=== PATIENT | female | born 1990 | race Caucasian/White ===

== ENCOUNTER 2017-03-01 10:07 | Emergency (ER) | payer BC, OTHER ==
[~2017-03-01] VITALS: Ht 162.6 cm; Wt 53.6 kg
[~2017-03-01 10:07] MED LIST: ACET500C PO; IBUP80TA FT; IBUP80TA PO; PRENTAB55 PO; TYLE325T5 PO
--- NOTE | 2017-03-01 11:17 | REP ---
Clinical: Trauma. Technique: AP, lateral, bilateral oblique views of the right ankle. Findings: No acute fracture dislocation. No significant soft tissue swelling. Joint spaces and ankle mortise are intact. Impression: No acute fracture dislocation. Signed by Edward Webb MD 03/01/2017 11:08 A
--- NOTE | 2017-03-01 11:18 | REP ---
Clinical: Trauma. Technique: AP, lateral, bilateral oblique views of the right foot. Findings: No acute fracture or dislocation. Skeletal structures and joint spaces are intact within normal limits. Focal soft tissue swelling overlying the fifth metatarsophalangeal (MTP) joint is suggested and should be correlated with physical examination. Impression: 1. No acute fracture dislocation. 2. Focal soft tissue swelling at the fifth MTP joint. Signed by Edward Webb MD 03/01/2017 11:10 A
[2017-03-01 11:32] VITALS: BP 122/72
== END 2017-03-01 11:36 | disposition home or self-care (01) ==
LOC: M ED 10:07
DX: M79.671 Pain in right foot (principal); L40.0 Psoriasis vulgaris; W10.9XXA Fall (on) (from) unspecified stairs and steps, initial encounter; X50.9XXA Other and unspecified overexertion or strenuous movements or postures, initial encounter; Y92.019 Unspecified place in single-family (private) house as the place of occurrence of the external cause; Y93.01 Activity, walking, marching and hiking; Y99.8 Other external cause status; J45.909 Unspecified asthma, uncomplicated; L40.50 Arthropathic psoriasis, unspecified; K58.9 Irritable bowel syndrome, unspecified; Z88.5 Allergy status to narcotic agent; Z88.2 Allergy status to sulfonamides; Z88.8 Allergy status to other drugs, medicaments and biological substances

== ENCOUNTER → 2017-05-05 | Outpatient (REF) | payer BC ==
[~2017-05-05] MED LIST changes: +EPIP0.3I2 IJ; +MELO15TA4 PO; +NEXP1IMP SC; +NORCOTAB PO
== END ==
LOC: M LAB REF 16:32
PROVIDERS: ATTEND Family Medicine Addiction Medicine
DX: N20.0 Calculus of kidney (principal)

== ENCOUNTER 2017-05-09 21:00 | Emergency (ER) | payer BC ==
[~2017-05-09] VITALS: Ht 162.6 cm; Wt 50.9 kg
[~2017-05-09 21:00] MED LIST changes: -EPIP0.3I2 IJ; -MELO15TA4 PO; -NEXP1IMP SC; -NORCOTAB PO
[2017-05-09] MEDS ORDERED: EPIP0.3I2 IJ (21:15)
[2017-05-09] MEDS ORDERED: MELO15TA4 PO (21:15)
[2017-05-09] MEDS ORDERED: NEXP1IMP SC (21:16)
[2017-05-09] MEDS ORDERED: NS 1,000 ML IV ONE (22:30)
[2017-05-09] MEDS ORDERED: ONDANSETRON 4MG/2ML VIAL (J2405) IV ONE (22:30)
[2017-05-09] MEDS ORDERED: KETOROLAC 30 MG/ML VIAL (J1885) IV ONE (22:30)
[2017-05-09 23:03] LABS: CONTROL LINE UCG INT CTR LINE PRESENT
[2017-05-09 23:10] LABS: BASO % 0.3 % (0.0-1.0); EOS # 0.1 10^3/uL (0.0-0.50); EOS % 1.9 % (0.0-3.0); IMMATURE GRANULOCYTE % 0.2 % (0-0); LYMPH # 1.9 10^3/uL (1.5-6.5); LYMPH % 33.2 % (24.0-44.0); MEAN CORPUSCULAR HEMOGLOBIN 29.9 pg (27.0-33.0); MEAN CORPUSCULAR VOLUME 90.7 fl (80.0-96.0); MONO # 0.5 10^3/uL (0.0-0.8); MONO % 9.2 % (0.0-5.0); NEUTROPHILS # 3.2 10^3/uL (1.8-7.7); NEUTROPHILS % 55.2 % (36.0-66.0); PLATELET COUNT, AUTOMATED 261 10^3/uL (150-450); RED CELL DISTRIBUTION WIDTH 12.3 % (11.5-14.5); WHITE BLOOD COUNT 5.8 10^3/uL (4.0-10.0)
[2017-05-09 23:21] LABS: INR 1.03
[2017-05-09 23:39] LABS: ALBUMIN 4.2 GM/DL (3.2-5.2); ALBUMIN/GLOBULIN RATIO 1.24 (1.00-1.93); ALKALINE PHOSPHATASE 65 U/L (45-117); ALT/SGPT 20 U/L (12-78); ANION GAP 3 MEQ/L (8-16); AST/SGOT 23 U/L (7-37); BILIRUBIN,DIRECT 0.2 MG/DL (0.0-0.2); BILIRUBIN,TOTAL 0.9 MG/DL (0.2-1.0); BLOOD UREA NITROGEN 16 MG/DL (7-18); CARBON DIOXIDE LEVEL 31 MEQ/L (21-32); CHLORIDE LEVEL 106 MEQ/L (98-107); CREATININE FOR GFR 0.61 MG/DL (0.55-1.02); GLOMERULAR FILTRATION RATE > 60.0 (>60); GLUCOSE, FASTING 83 MG/DL (70-105); POTASSIUM SERUM 4.1 MEQ/L (3.5-5.1); SODIUM LEVEL 140 MEQ/L (136-145); TOTAL PROTEIN 7.6 GM/DL (6.4-8.2)
--- NOTE | 2017-05-09 23:40 | REPUSA ---
CT of the abdomen and pelvis without contrast Clinical statement: Pain. Technique: Multiple axial CT images were obtained from the base of the lungs to the floor of the pelv is utilizing 5 mm axial slices without administration of contrast. Coronal and sagittal reconstructio ns were also obtained. No comparison is available. Findings: Chest: The visualized lung bases are clear. Abdomen: The kidneys are normal in size bilaterally. There is no evidence of hydronephrosis or nephro lithiasis. The liver, spleen, pancreas, gallbladder and adrenal glands are unremarkable. The aorta de monstrates normal caliber and contour. There is no abdominal lymphadenopathy or ascites. Pelvis: The bowel is unremarkable, with no obstructive or inflammatory changes. The appendix is rayray l. The urinary bladder is within normal limits. There is no pelvic lymphadenopathy or ascites. The ot her pelvic structures appear unremarkable. Bones: There are no suspicious osseous abnormalities seen. Impression: Unremarkable CT examination of the abdomen and pelvis.
[2017-05-10] MEDS ORDERED: NORCOTAB PO (00:03)
[2017-05-10] MEDS ORDERED: NORCO, ANEXSIA 5/325MG TABLET (HYDROcodone/ACETAMINOPHEN) PO ONE (00:15)
[2017-05-10 00:16] VITALS: BP 124/67
== END 2017-05-10 00:17 | disposition home or self-care (01) ==
LOC: M ED 21:00
DX: R10.9 Unspecified abdominal pain (principal); R11.0 Nausea; J45.909 Unspecified asthma, uncomplicated; K58.9 Irritable bowel syndrome, unspecified; E05.00 Thyrotoxicosis with diffuse goiter without thyrotoxic crisis or storm; Z79.3 Long term (current) use of hormonal contraceptives; Z88.5 Allergy status to narcotic agent; Z88.1 Allergy status to other antibiotic agents; Z88.2 Allergy status to sulfonamides; Z87.442 Personal history of urinary calculi
CPT/HCPCS: 74176; 80048; 80076; 81001; 83690; 84703; 85025; 85610; 96374; 96375; 99284; J1885; J2405

== ENCOUNTER → 2017-09-07 | Outpatient (CLI) | payer BC | LOC: M EKG 14:54 | DX: R07.89 Other chest pain (principal) | CPT/HCPCS: 71046 ==

== ENCOUNTER → 2018-09-04 | Outpatient (REF) | payer BC, OTHER, SELFPAY ==
[~2018-09-04] MED LIST changes: +EPIP0.3I2 IJ; +HYDR-3715 PO; +MELO15TA28 PO; +NEXP1IMP SC
[2018-09-04 20:50] LABS: INFLUENZA A AMPLIFICATION NEGATIVE (NEGATIVE); INFLUENZA B AMPLIFICATION NEGATIVE (NEGATIVE)
== END ==
LOC: M LAB REF 12:33
PROVIDERS: ATTEND Physician Assistant Medical
DX: J11.1 Influenza due to unidentified influenza virus with other respiratory manifestations (principal)

== ENCOUNTER → 2018-09-20 | Outpatient (REF) | payer OTHER ==
[~2018-09-20] MED LIST changes: -HYDR-3715 PO; +NORCOTAB PO
[2018-09-20 11:16] LABS: BASO % 0.5 % (0.0-1.0); EOS # 0.1 10^3/uL (0.0-0.50); EOS % 2.2 % (0.0-3.0); HEMATOCRIT 41.6 % (36.0-47.0); HEMOGLOBIN 13.7 g/dl (12.0-15.5); LYMPH # 1.5 10^3/uL (1.5-6.5); LYMPH % 27.2 % (24.0-44.0); MEAN CORPUSCULAR HEMOGLOBIN 29.8 pg (27.0-33.0); MEAN CORPUSCULAR HGB CONC 32.9 g/dl (32.0-36.5); MEAN CORPUSCULAR VOLUME 90.4 fl (80.0-96.0); MONO # 0.4 10^3/uL (0.0-0.8); MONO % 6.4 % (0.0-5.0); NEUTROPHILS # 3.5 10^3/uL (1.8-7.7); NEUTROPHILS % 63.3 % (36.0-66.0); PLATELET COUNT, AUTOMATED 285 10^3/uL (150-450); WHITE BLOOD COUNT 5.5 10^3/uL (4.0-10.0)
[2018-09-20 11:33] LABS: HEMOGLOBIN A1c 5.4 %
[2018-09-20 11:55] LABS: ALBUMIN 4.3 GM/DL (3.2-5.2); ALT/SGPT 18 U/L (12-78); BILIRUBIN,TOTAL 1.9 MG/DL (0.2-1.0); BLOOD UREA NITROGEN 12 MG/DL (7-18); CALCIUM LEVEL 8.9 MG/DL (8.5-10.1); CARBON DIOXIDE LEVEL 28 MEQ/L (21-32); CHLORIDE LEVEL 107 MEQ/L (98-107); CHOLESTEROL LEVEL 142 MG/DL (<200); CREATININE FOR GFR 0.72 MG/DL (0.55-1.30); GLOMERULAR FILTRATION RATE > 60.0 (>60); GLUCOSE, FASTING 90 MG/DL (70-100); HDL CHOLESTEROL 52 MG/DL (>40); LDL CHOLESTEROL 82 MG/DL (<100); NON-HDL-C 90 MG/DL; POTASSIUM SERUM 4.2 MEQ/L (3.5-5.1); SODIUM LEVEL 144 MEQ/L (136-145); THYROXINE (T4) 9.9 UG/DL (4.5-12.0); TRIGLYCERIDES LEVEL 39 MG/DL (<150)
[2018-09-20 11:56] LABS: TOTAL 25(OH) VITAMIN D 34.2 NG/ML (30.0-100.0)
[2018-09-22 00:07] LABS: Lyme Disease IgG/IgM Antibodie <0.91 ISR (0.00-0.90); Lyme Disease IgM Ab Quantitati <0.80 index (0.00-0.79)
== END ==
LOC: M LAB REF 10:41
PROVIDERS: ATTEND Family Medicine
DX: Z13.228 Encounter for screening for other metabolic disorders (principal)

== ENCOUNTER → 2018-10-17 | Outpatient (REF) | payer OTHER ==
[~2018-10-17] MED LIST changes: +HYDR-3715 PO; -NORCOTAB PO
[2018-10-17 19:27] LABS: APPEARANCE, URINE HAZY (CLEAR); BACTERIA, URINE AUTO 1+ (NEGATIVE); BILIRUBIN, URINE AUTO NEGATIVE (NEGATIVE); BLOOD, URINE BLOOD NEGATIVE (NEGATIVE); COLOR, URINE STRAW (YELLOW); GLUCOSE, URINE (UA) AUTO NEGATIVE (NEGATIVE); KETONE, URINE AUTO NEGATIVE (NEGATIVE); LEUKOCYTE ESTERASE, URINE AUTO 3+ (NEGATIVE); NITRITE, URINE AUTO NEGATIVE (NEGATIVE); PROTEIN, URINE AUTO NEGATIVE (NEGATIVE); RBC, URINE AUTO 3 /HPF (0-3); SPECIFIC GRAVITY URINE AUTO 1.006 (1.002-1.035); SQUAMOUS EPITHELIAL CELL UR AU 4 /HPF (0-6); UROBILINOGEN, URINE AUTO 0.2 mg/dL (0.0-2.0); WBC, URINE AUTO 31 /HPF (0-3)
[2018-10-17 22:16] LABS: CHLAMYDIA DNA AMPLIFICATION NEGATIVE (NEGATIVE); GC DNA AMPLIFICATION NEGATIVE (NEGATIVE)
== END ==
LOC: M LAB REF 18:37
PROVIDERS: ATTEND Nurse Practitioner Adult Health
DX: R30.0 Dysuria (principal)

== ENCOUNTER → 2019-04-02 | Outpatient (REF) | payer OTHER | LOC: M LAB REF 09:52 | PROVIDERS: ATTEND Obstetrics & Gynecology | DX: Z12.4 Encounter for screening for malignant neoplasm of cervix (principal) ==

== ENCOUNTER → 2019-05-07 | Outpatient (REF) | payer OTHER | LOC: M LAB REF 16:31 | PROVIDERS: ATTEND Surgery | DX: D22.5 Melanocytic nevi of trunk (principal) ==

== ENCOUNTER → 2020-03-13 | Outpatient (REF) | payer OTHER ==
[2020-03-13 17:32] LABS: BASO % 0.6 % (0.0-1.0); EOS # 0.1 10^3/uL (0.0-0.5); EOS % 1.7 % (0.0-3.0); HEMATOCRIT 39.9 % (36.0-47.0); LYMPH # 1.3 10^3/uL (1.5-5.0); LYMPH % 25.5 % (24.0-44.0); MEAN CORPUSCULAR HEMOGLOBIN 31.1 pg (27.0-33.0); MEAN CORPUSCULAR HGB CONC 32.6 g/dl (32.0-36.5); MEAN CORPUSCULAR VOLUME 95.5 fl (80.0-96.0); MONO # 0.4 10^3/uL (0.0-0.8); MONO % 8.2 % (0.0-5.0); NEUTROPHILS # 3.4 10^3/uL (1.5-8.5); NEUTROPHILS % 63.8 % (36.0-66.0); PLATELET COUNT, AUTOMATED 252 10^3/uL (150-450); RED BLOOD COUNT 4.18 10^6/uL (4.00-5.40); WHITE BLOOD COUNT 5.3 10^3/uL (4.0-10.0)
[2020-03-13 17:46] LABS: ALBUMIN 4.3 GM/DL (3.2-5.2); ALT/SGPT 17 U/L (12-78); BILIRUBIN,TOTAL 1.5 MG/DL (0.2-1.0); BLOOD UREA NITROGEN 9 MG/DL (7-18); CALCIUM LEVEL 9.1 MG/DL (8.5-10.1); CARBON DIOXIDE LEVEL 27 MEQ/L (21-32); CHLORIDE LEVEL 110 MEQ/L (98-107); CHOLESTEROL LEVEL 127 MG/DL (<200); CREATININE FOR GFR 0.72 MG/DL (0.55-1.30); FREE T4 1.09 NG/DL (0.76-1.46); GLOMERULAR FILTRATION RATE > 60.0 (>60); GLUCOSE, FASTING 93 MG/DL (70-100); HDL CHOLESTEROL 51 MG/DL (>40); LDL CHOLESTEROL 68 MG/DL (<100); NON-HDL-C 76 MG/DL; POTASSIUM SERUM 3.9 MEQ/L (3.5-5.1); SODIUM LEVEL 143 MEQ/L (136-145); TOTAL PROTEIN 7.6 GM/DL (6.4-8.2); TRIGLYCERIDES LEVEL 41 MG/DL (<150)
[2020-03-13 17:51] LABS: TOTAL 25(OH) VITAMIN D 46.4 NG/ML (30.0-100.0)
== END ==
LOC: M LAB REF 16:24
PROVIDERS: ATTEND Physician Assistant
DX: R00.2 Palpitations (principal); M32.9 Systemic lupus erythematosus, unspecified; E05.00 Thyrotoxicosis with diffuse goiter without thyrotoxic crisis or storm; Q21.1 Atrial septal defect

== ENCOUNTER → 2020-07-02 | Outpatient (REF) | payer BC, OTHER ==
[2020-07-02 17:31] LABS: BILIRUBIN,DIRECT 0.2 MG/DL (0.0-0.2); BILIRUBIN,TOTAL 0.7 MG/DL (0.2-1.0)
== END ==
LOC: M LAB REF 16:15
PROVIDERS: ATTEND Physician Assistant
DX: R17 Unspecified jaundice (principal)

== ENCOUNTER → 2020-08-13 | Outpatient (REF) | payer OTHER ==
[~2020-08-13] MED LIST changes: +BISO5TAB14 PO; +COLA100C5 PO; +DEPO150I IM; +GABA-1171 PO; +HYDR200T3 PO; +LEXA1TAB PO; +OXYC1TAB23 PO; +PROP10TA56 PO; +VENTAER INH
[2020-08-13 15:23] LABS: HEMATOCRIT 40.2 % (36.0-47.0); HEMOGLOBIN 13.1 g/dl (12.0-15.5); MEAN CORPUSCULAR HEMOGLOBIN 30.8 pg (27.0-33.0); MEAN CORPUSCULAR HGB CONC 32.6 g/dl (32.0-36.5); MEAN CORPUSCULAR VOLUME 94.6 fl (80.0-96.0); PLATELET COUNT, AUTOMATED 250 10^3/uL (150-450); RED BLOOD COUNT 4.25 10^6/uL (4.00-5.40); WHITE BLOOD COUNT 5.9 10^3/uL (4.0-10.0)
[2020-08-13 15:34] LABS: INR 0.95; PROTHROMBIN TIME 12.9 SECONDS (12.5-14.3)
[2020-08-13 15:35] LABS: PARTIAL THROMBOPLASTIN TIME 32.7 SECONDS (24.2-38.5)
[2020-08-16 15:09] LABS: FACTOR 8 RISTOCETIN COFACTOR 49 % (50-200); FACTOR VIII AG (VON WILLEBRAN) 66 % (50-200)
== END ==
LOC: M PLALAB 14:32
PROVIDERS: ATTEND Obstetrics & Gynecology
DX: Z32.02 Encounter for pregnancy test, result negative (principal); Z83.2 Family history of diseases of the blood and blood-forming organs and certain disorders involving the immune mechanism

== ENCOUNTER → 2020-08-14 | Outpatient (CLI) | payer OTHER ==
[~2020-08-14] MED LIST changes: -COLA100C5 PO; -OXYC1TAB23 PO
== END ==
LOC: M LABSMTC 10:13
PROVIDERS: ATTEND Anesthesiology
DX: Z01.812 Encounter for preprocedural laboratory examination (principal); Z20.822 Contact with and (suspected) exposure to COVID-19

== ENCOUNTER 2020-08-19 07:32 | Day surgery (SDC) | payer OTHER ==
[~2020-08-19] VITALS: Ht 160 cm; Wt 59.4 kg
[~2020-08-19 07:32] MED LIST changes: +LR 1,000 ML IV ONE
--- OUTSIDE RECORDS SUMMARY | 2020-08-19 07:36 | CCD | Summary of Care ---
Author Author [facility] Address Unknown Phone Unavailable Care Team Providers Care Concessions Manager Name Role Phone Jhonathan Maldonado MD PCP Reason for Visit * Reason Comments Follow-up psoriatic arthritis Encounter Details Care Team Description Date Type Department Elio Salinas MD [address] [facility] [address] [place], [place] [id number] Psoriatic arthritis (Primary Dx); [facility] current use of immunosuppressive drug; Counseling, unspecified 06/03/2020 Telemedicine [facility] Rheumatolog y at [facility] [address] [facility] [address], [address] [place] [address] Allergies Comments Active Allergy Reactions Severity Noted Date Codeine 07/10/2019 Sulfa Antibiotics 07/10/2019 documented as of this encounter (statuses as of 06/03/2020) Medications End Date Status Medication Sig Dispensed Refills Start Date Active Bisoprolol Fumarate 5 MG Take 5 mg by 0 05/15 Oral Tablet (ZEBETA) mouth daily 9 Active Zolpidem Tartrate 10 MG TAKE 1 TABLET 0 Oral Tablet (AMBIEN) BY MOUTH ONCE 9 DAILY 1 HOUR PRIOR TO SLEEPING NEEDED FOR INSOMNIA MAX DAILY DOSE OF 1 TABLET Active Montelukast Sodium 10 MG Take 10 mg by 0 06/22 Oral Tablet (SINGULAIR) mouth daily 9 Active Escitalopram Oxalate 10 TAKE 1&1 2 0 MG Oral Tablet (LEXAPRO) TABLET BY 9 MOUTH DAILY CAN INCREASE TO 2 TABS DAILY NEEDED FOR ANXIETY Active Albuterol Sulfate HFA 108 Inhale 2 0 06/0 (90 Base) MCG/ACT puffs into 9 Inhalation Aerosol the lungs Solution (PROVENTIL every 4 HFA;VENTOLIN HFA) (four) hours as needed Active EPINEPHrine 0.3 MG/0.3ML 0 Injection Solution 9 Auto-injector (EPIPEN 2-BRENDEN) Active medroxyPROGESTERone 0 Acetate 150 MG/ML 9 Intramuscular Suspension (DEPO-PROVERA) Active Naproxen Sodium (ALEVE Take by mouth 0 PO) Active Multivitamin Childrens Chew by Mouth 0 Oral Tablet Chewable Active Hydroxychloroquine Take 200 mg 0 Sulfate 200 MG Oral by mouth 0 Tablet (PLAQUENIL) daily Active Gabapentin 100 MG Oral Take 100 mg 0 02 Capsule (NEURONTIN) by mouth 0 Three times daily Active Fluticasone Propionate 50 USE 1 0 01/24 MCG/ACT Nasal Suspension SPRAY(S) IN 0 (FLONASE) EACH NOSTRIL NEEDED Active busPIRone HCl 10 MG Oral Take 10 mg by 0 04/30 Tablet (BUSPAR) mouth Two 0 Times Daily 07/02/2020 Active Secukinumab 150 MG/ML Inject 150 mg 5 mL 0 Subcutaneous Solution into the skin 0 Auto-injector every 7 (COSENTYX)Indications: (seven) days Psoriatic arthritis for 5 doses Active Secukinumab 150 MG/ML Inject 150 mg 1.96 mL 6 Subcutaneous Solution into the skin 1 Auto-injector every 28 (COSENTYX)Indications: (twenty-eight Psoriatic arthritis ) days 06/03/2020 Discontinued (Cost of medica tion) Ixekizumab 80 MG/ML Inject 80 mg 1 Syringe 5 07/11 Subcutaneous Solution into the skin 0 Auto-injector every 28 (twenty-eight ) days documented as of this encounter (statuses as of 06/03/2020) Active Problems Problem Noted Date SLE (systemic lupus erythematosus) 12/04/2019 Psoriasis 12/04/2019 documented as of this encounter (statuses as of 06/03/2020) Immunizations Name Administration Dates Next Due Influenza Quad IM Pres 07/10/2019 Free (0.5 mL dose) documented as of this encounter Social History Date Tobacco Use Types Packs/Day Years Used Former Smoker Smokeless Tobacco: Never Used Comments: quit 10 years ago, smoked 1 pa ck a week for 1.5 years Drinks/Week oz/Week Comments Alcohol Use Yes Sex Assigned at Date Recorded Not on file documented as of this encounter Last Filed Vital Signs Not on filedocumented in this encounter Progress Notes * Elio Salinas MD - 06/03/2020 12:30 PM ESTSummary: Rheumatology Telemedicine Note Rheumatology Clinic Note Patient name: Racheal Treviño : 1990 PCP: Jhonathan Maldonado MD Subjective History of Present Illness: Ms. Racheal Treviño is a 30 y.o. female with medical/surgical diagnoses as li sted below and most significant for psoriatic arthritis and asthma , coming in [facility] for management of psoriatic arthritis. Chart/medical history reviewed: "PCP for psoriatic arthritis and used to see rheumatology in [place]. She was diagnosed with skin psoriasis at 12yo and by 14 yo she started to have joint gissell n that was treated conservatively. After her first child in 2009 joint symptoms got worst and she was placed on humira from 7966-5496 this was stopped because i t increased LN of the neck. Then in 2013 she was placed on MTX 2 pills/ week fo r 1 year but stopped because of recurrent infections. She was then placed on an oral agent (she cannot recall name but believes it was HCQ po daily) which seem ed to work well but since she moved from [place] to [place] she has been off. On the initial visit c/o joint pain in back, neck, knees. She has daily morning stiffness for 3 hours and relieved with aleve extra strength TID daily and stret vernell. Activity helps but too much can make it worst. She has occasional swellin g her hands (MCP and PIP) and knees. She has skin psoriasis mainly in legs, elb ows and scalp. On initial visit lab work ordered including HALLEY, HALLEY specificity, APLA panel, ES R/CRP, RF, anticcp, hepatitis panel, TSH, C3/C4, HLAb27, quantiferon, immunoglob ulin assay, TPO, UA and UPCR and remarkable for ESR of 26, +HALLEY speckled pattern 1:160. Xrays were done of hands, knees and SI joint that were unremarkable. Gi sagar her inflammatory arthritis and active skin disease Taltz was started" "ROS has three healthy children, no history of miscarriage. She recurrently oral sores, photosensitivity, malar rash, occasional swelling in hands, hand tur n white in the cold, stress dependent hair loss, fatigue. FH positive for grave s in mother and maternal GP. Dad with positive HALLEY but no diagnosis. Remaining ROS was negative for alopecia, history of miscarriage, history of PE/D VT or CVA, inflammatory bowel disease, iritis, xerostomia, keratoconjunctivitis sicca, parotid gland swelling, renal disease, pulmonary issues, pleurisy, cardia c issues, nail pitting." Telemedicine visit 12/04/19 via video: She was unable to get the Taltz because of insurance issues and high cost. She s tates she was not offered alternative by insurance. Jun 03 2020 Telemed: This is a tele-medical visit. The patient was informed of the risks including se curity breach, technological failure, inability to perform a comprehensive physi eladia exam which could delay or prevent an accurate diagnosis, and potential compl ications from treatment decisions rendered over a telemedical platform. The brittany ent understands and consented to the use of tele-health services. The service was provided by means of an [employer]. Time spent on this evaluation today: 35 minutes She is on hydroxychloroquine 200mg daily. Never able to take ixekizumab. She is still stiff for 4 hours in the morning in her hands/ hips/ knees. Continues to h ave scalp psoriasis which is worse than before. Denies infectious symptoms. Past Medical History: Past Medical History: Diagnosis Date Asthma Past Surgical History: Past Surgical History: Procedure Laterality Date TONSILLECTOMY Past Social History: Social History Socioeconomic History Marital status: Spouse name: Not on file Number of children: Not on file Years of education: Not on file Highest education level: Not on file Occupational History Not on file Social Needs Financial resource strain: Not on file Food insecurity Worry: Not on file Inability: Not on file Transportation needs Medical: Not on file Non-medical: Not on file Tobacco Use Smoking status: Former Smoker Smokeless tobacco: Never Used Tobacco comment: quit 10 years ago, smoked 1 pack a week for 1.5 years Substance and Sexual Activity Alcohol use: Yes Drug use: Not on file Sexual activity: Not on file Lifestyle Physical activity Days per week: Not on file Minutes per session: Not on file Stress: Not on file Relationships Social connections Talks on phone: Not on file Gets together: Not on file Attends mosque service: Not on file Active member of club or organization: Not on file Attends meetings of clubs or organizations: Not on file Relationship status: Not on file Intimate partner violence Fear of current or ex partner: Not on file Emotionally abused: Not on file Physically abused: Not on file Forced sexual activity: Not on file Other Topics Concern Not on file Social History Narrative Not on file Family History: Family History Problem Relation Age of Onset Hypertension Mother Medications: Current Outpatient Medications Medication Sig Dispense Refill Albuterol Sulfate HFA 108 (90 Base) MCG/ACT Inhalation Aerosol Solution ( PROVENTIL HFA;VENTOLIN HFA) Inhale 2 puffs into the lungs every 4 (four) hours a s needed Bisoprolol Fumarate 5 MG Oral Tablet (ZEBETA) Take 5 mg by mouth daily EPINEPHrine 0.3 MG/0.3ML Injection Solution Auto-injector (EPIPEN 2-BRENDEN) Escitalopram Oxalate 10 MG Oral Tablet (LEXAPRO) TAKE 1&1 2 TABLET BY MOUTH DAILY CAN INCREASE TO 2 TABS DAILY NEEDED FOR ANXIETY Ixekizumab 80 MG/ML Subcutaneous Solution Auto-injector Inject 80 mg into the skin every 28 (twenty-eight) days (Patient not taking: Reported on 12/03/2019) 1 Syringe 5 medroxyPROGESTERone Acetate 150 MG/ML Intramuscular Suspension (DEPO-PROV ERA) Montelukast Sodium 10 MG Oral Tablet (SINGULAIR) Take 10 mg by mouth ayaka y Multivitamin Childrens Oral Tablet Chewable Chew by Mouth Naproxen Sodium (ALEVE PO) Take by mouth Zolpidem Tartrate 10 MG Oral Tablet (AMBIEN) TAKE 1 TABLET BY MOUTH ONCE DAILY 1 HOUR PRIOR TO SLEEPING NEEDED FOR INSOMNIA MAX DAILY DOSE OF 1 TABLET No current facility-administered medications for this visit. Review of Systems: Review of Systems Constitutional: Negative for activity change, appetite change, chills, fatigue a nd fever. HENT: Negative for hearing loss, mouth sores, sinus pressure, sinus pain and sor e throat. Eyes: Negative for photophobia, pain, discharge, redness, itching and visual dis turbance. Respiratory: Negative for chest tightness, shortness of breath and wheezing. Cardiovascular: Negative for chest pain and palpitations. Gastrointestinal: Negative for constipation, diarrhea, nausea and vomiting. Genitourinary: Negative for difficulty urinating, dysuria, flank pain and hematu jair. Musculoskeletal: Positive for arthralgias, back pain and joint swelling. Negativ e for myalgias, neck pain and neck stiffness. Skin: Positive for rash. Negative for color change, pallor and wound. Allergic/Immunologic: Positive for immunocompromised state. Negative for environ mental allergies. Neurological: Negative for syncope, light-headedness, numbness and headaches. Hematological: Positive for adenopathy. Psychiatric/Behavioral: Negative for sleep disturbance. The patient is not nervo us/anxious. Objective There were no vitals filed for this visit. Physical Exam Constitutional: She is oriented to person, place, and time and well-developed, w ell-nourished, and in no distress. No distress. HENT: Head: Normocephalic and atraumatic. Right Ear: External ear normal. Left Ear: External ear normal. Nose: Nose normal. Mouth/Throat: Oropharynx is clear and moist. No oropharyngeal exudate. Eyes: Pupils are equal, round, and reactive to light. Conjunctivae and EOM are n ormal. Right eye exhibits no discharge. Left eye exhibits no discharge. No scler al icterus. Neck: Normal range of motion. Neck supple. No tracheal deviation present. No thy romegaly present. Pulmonary/Chest: Effort normal. No stridor. No respiratory distress. She exhibit s no tenderness. Abdominal: She exhibits no distension. Musculoskeletal: Right shoulder: She exhibits normal range of motion. Left shoulder: She exhibits normal range of motion. Right elbow: She exhibits normal range of motion. Left elbow: She exhibits normal range of motion. Right wrist: She exhibits normal range of motion. Left wrist: She exhibits normal range of motion. Right hip: She exhibits normal range of motion. Left hip: She exhibits normal range of motion. Right knee: She exhibits normal range of motion. Left knee: She exhibits normal range of motion. Right ankle: She exhibits normal range of motion. Achilles tendon normal. Left ankle: She exhibits normal range of motion. Achilles tendon normal. Right hand: She exhibits normal range of motion. Left hand: She exhibits normal range of motion. Neurological: She is alert and oriented to person, place, and time. No cranial n erve deficit. GCS score is 15. Skin: Skin is warm and dry. No rash noted. She is not diaphoretic. No erythema. No pallor. Psychiatric: Mood, memory, affect and judgment normal. Nursing note and vitals reviewed. I have independently reviewed all imaging studies I have independently reviewed all outside documentation. I have independently reviewed all microbiology results. Assessment & Plan Ms. Racheal Treviño is a 30 y.o. female with psoriatic arthritis and asthma , coming in today for management of psoriatic arthritis. Subjectively she is on hydroxychloroquine appropriate dose but continues to have skin and joint arthritis. Objectively evaluation is challenging with software. Suspect her disease is active and requires biologic therapy. Plans a follows: #psoriatic arthritis. HALLEY positive 1:160 speckled. HLA-B27 negative. Sed rate 26 off of therapy. No erosive disease. We will continue hydroxychloroquine 200mg qdaily We will attempt to start secukinumab loading weekly X 5 followed by monthly give n uncontrolled disease. #high risk medication: Quantiferon negative Jun 2019 Hepatitis Panel negative. Eye exam referral approve pending exam. Pneumonia 13 defer to PCP Pneumonia 23 defer to PCP. Activities as tolerated. Fall precautions emphasized. Diet: low carb/low fat, more greens/vegetables, adequate hydration Exercise: Try to maintain a low impact exercise regimen as much as possible. [employer] [facility] for 30 minutes a day for at least 3 days a week. Encouraged to maintain good sleep hygiene Continue other medications as prescribed by PCP and other specialists. DVT precautions especially during long distance travel RTC: 6 months The patient was seen and examined with the attending, Dr. Anita Salinas MD Rheumatology Fellow, PGY-5 [facility] documented in this encounter Plan of Treatment Order Schedule Name Type Priority Associated Diag noses 1 Occurrences starting 06/03/2020 until 12/02/2020 CBC and Differential Lab Routine Psoriatic arthritis Expected: 09/01/2020, Expires: 1 Comprehensive Metabolic Lab Routine Psoria tic arthritis Panel Expected: 06/03/2020, Expires: 1 Inflammatory C-Reactive Lab Routine Psoria tic arthritis Protein (CRP) 1 Occurrences starting 06/03/2020 until 12/02/2020 Sedimentation rate, Lab Routine Psoriatic arthritis automated Health Maintenance Due Date Last Done Comments MMR Vaccines (1 of - 1991 Standard series) Varicella Vaccines (1 of 1991 2 - 2-dose childhood series) DTaP,Tdap,and Td Vaccines 1997 (1 - Tdap) HIV Screening 2003 Influenza Vaccine 03/26/2020 07/10/2019 Pneumococcal Vaccine: 65+ 2055 Years (1 of 1 - PPSV23) HIB Vaccines Aged Out No longer eligible based on patient's age to complete this topic Hepatitis A Vaccines Aged Out No longer eligibl e based on patient's age to complete this topic Hepatitis B Vaccines Aged Out No longer eligibl e based on patient's age to complete this topic IPV Vaccines Aged Out No longer eligible based on patient's age to complete this topic Pneumococcal Vaccine: Aged Out No longer eligib le based on patient's age to Pediatrics (0 to 5 Years) complete this topic and At-Risk Patients (6 to 64 Years) documented as of this encounter Results Not on filedocumented in this encounter Visit Diagnoses Diagnosis Psoriatic arthritis - Primary Psoriatic arthropathy [facility] current use of immunosuppress valerie drug Counseling, unspecified documented in this encounter
--- OUTSIDE RECORDS SUMMARY | 2020-08-19 07:36 | CCD | Continuity of Care Document ---
Author Author Racheal JOHNSON PAAngelC Organization Unknown Address [address] [place] [address] Phone [phone] Care Team Providers Care Software Testing Specialist Name Role Phone Lisa Orosco RK AUTM Problems Description No Information Available Social History Type Date Description Comments Sex Unknown ETOH Use Never used alcohol Tobacco Use Start: Unknown Patient has never smoked Allergies, Adverse Reactions, Alerts Active Allergies Reaction Severity Comments Date Codeine 04/28/2020 sulfa drugs 04/28/2020 Medications Active Medications SIG Qnty Indications Ordering Provide r Date Lexapro 20mg Tablets 1 by mouth every day Unknown Hydroxychloroquine Sulfate 200mg T ablets Unknown Buspirone HCL 10mg Tablets Unknown Gabapentin 100mg Capsules 1 by mouth three times a day Unknown Bisoprolol Fumarate 5mg Tablets Unknown Propranolol HCL 10mg Tablets Unknown Immunizations Description No Information Available Vital Signs Date Vital Result Comment 04/28/2020 9:45am Height 64.5 inches 5'4.50" Weight 128.50 lb BMI (Body Mass Index) 21.7 kg/m2 Results Description No Information Available Procedures Date Code Description Status 05/14/2020 03824 Manual Therapy Each 15 Minutes C ompleted 05/14/2020 43374 Therapeutic Procedure, Each 15 M inutes Completed 05/14/2020 08682 Electrical Stimulati on Manual, Each 15 Min, Constant Attendance Completed 05/14/2020 36062 Hot Or Cold Packs Completed 05/12/2020 77188 Physical Therapy Eval - Low Comp lexity Completed 04/28/2020 34835 X-Ray Ankle Complete Completed 04/28/2020 33240 X-Ray Tibia & Fibula Ap & Latera l 2 Views Completed Medical Devices Description No Information Available Encounters Type Date Location Provider Dx Diagnosis Office Visit 05/11/2020 1:45p [place] Johnson PA-C S90.01x D Contusion of right ankle, subsequent encounter S80.11xD Contusion of right lower leg , subsequent encounter S81.811D Laceration w/o foreign body, right lower leg, subs encntr Office Visit 04/28/2020 9:00a [place] Hattie Johnson PA-C S80.11x A Contusion of right lower leg, initial encounter S90.01xA Contusion of right ankle, in itial encounter S81.811A Laceration w/o foreign body, right lower leg, init encntr Assessments Date Code Description Provider 05/14/2020 S90.01xD Contusion of right ankle, subseq uent encounter Cece Scee P.T.A. 05/14/2020 S80.11xD Contusion of right lower leg, torrez bsequent encounter Cece Scee P.T.A. 05/14/2020 S81.811D Laceration without f oreign body, right lower leg, subsequent encounter Cece Scee P.T.A. 05/12/2020 S90.01xD Contusion of right ankle, subseq uent encounter Randy Johns, PT, DPT 05/12/2020 S80.11xD Contusion of right lower leg, torrez bsequent encounter Randy Johns, PT, DPT 05/12/2020 S81.811D Laceration without f oreign body, right lower leg, subsequent encounter Randy Johns, PT, DPT 05/11/2020 S90.01xD Contusion of right ankle, subseq uent encounter Hattie Johnson PA-C 05/11/2020 S80.11xD Contusion of right lower leg, torrez bsequent encounter Hattie Johnson PA-C 05/11/2020 S81.811D Laceration without f oreign body, right lower leg, subsequent encounter Hattie Johnson PA-C 04/28/2020 S81.811A Laceration without f oreign body, right lower leg, initial encounter Hattie ElamJohn MONIKA Johnson 04/28/2020 S80.11xA Contusion of right lower leg, in itial encounter Hattie ElamJohn MONIKA Johnson 04/28/2020 S90.01xA Contusion of right ankle, initia l encounter Hattie ElamJohn MONIKA Johnson 04/28/2020 S90.01xA Contusion of right ankle, initia l encounter Hattie Johnson PA-C 04/28/2020 S80.11xA Contusion of right lower leg, in itial encounter Hattie Iraida MONIKA Johnson 04/28/2020 S81.811A Laceration without f oreign body, right lower leg, initial encounter Hattie Johnson PA-C Plan of Treatment Future Appointment(s):* 06/01/2020 9:00 am - Cece Leach P.T.A. at Physical Therapy * 06/08/2020 11:30 am - Hattie Johnson PA-C at [place] 05/11/2020 - Hattie Johnson PA-C* S90.01xD Contusion of right ankle, subsequent encounter* Follow up:* in 3-4 weeks with [facility] for right ankle recheck please. (telemed visit) * S80.11xD Contusion of right lower leg, subsequent encounter * S81.811D Laceration without foreign body, right lower leg, subsequent encounter Functional Status Description No Information Available Mental Status Description No Information Available Referrals Refer to Dr Reason for Referral Status Appt Date Hattie Johnson PA-C PT BASED ON MED. [facility] TO PT DEPT. NT Create d [address] [place] [address] [phone] Hattie Johnson PA-C CRUT[place]ES and la nena shell a ir walker NO AUTH REQUIRED per card no auth required under . LS Created [facility] [place] [address] [phone]
--- OUTSIDE RECORDS SUMMARY | 2020-08-19 07:36 | CCD ---
Author Author [facility] Organization [facility] Address Unknown Phone Unavailable Care Team Providers Care Director Of Home Health Services Name Role Phone Kodi Moe Unavailable PROBLEMS Type Condition ICD9-CM Code [id number] Code Onset Dates Condition S tatus SNOMED Code Notes Problem Endometriosis N80.9 Active 485388840 ALLERGIES Allergen (clinical drug ingredient) Drug/Non Drug Allergy do cumented on EMR Reaction Allergy Type Onset Date Status Seasonal Unknown Non Drug Allergy Active novacain Unknown Non Drug Allergy Active codeine Unknown Non Drug Allergy Active Sulfacet-R Unknown Drug Allergy Active ENCOUNTERS from 1990 to 2020-07-11 Encounter Location Date Provider Diagnosis [facility] [address] [place] [id number] Jun, Kodi Moe Endometriosis N80.9 ; Negative test Z32.02 ; Encounter for surveillance of injectable contraceptive Z30.42 ; Family history of bleeding disorder Z83.2 and Family planning advice Z30.09 IMMUNIZATIONS Vaccine Route Administration Date Status Depo-Provera 150mg/1mL (Medroxy-Progestrone Acetate) IM Intr amuscular Jul 07, 2020 Administered SOCIAL HISTORY Tobacco Use: Social History Observation Description Date Details (start date - stop date) Never Smoker Sex Assigned At : Social History Observation Description Sex Assigned At Unknown Alcohol Screening: Question Answer Notes Did you have a drink containing alcohol in the past year? Ye s Points 3 Interpretation Positive How often did you have six or more drinks on one occas ion in the past year? Never (0 points) How many drinks did you have on a typica l day when you were drinking in the past year? 1 or 2 (0 points) How often did you have a drink containing alcohol in t he past year? Two to three times per week (3 points) Tobacco Use: Question Answer Notes Are you a: never smoker REASON FOR REFERRAL No Information VITAL SIGNS Weight 131.8 lbs Jun, Height 63.5 in Jun, BMI 22.98 kg/m2 Jun, Blood pressure systolic 122 mm Hg Jun, Blood pressure diastolic 70 mm Hg Jun, MEDICATIONS Medication SIG (Take, Route, Frequency, Duration) Notes Start Da te End Date Status Escitalopram Oxalate 20 MG TAKE 1 TABLET BY MOUTH ONCE DAILY Oral for 30 Active Fluticasone Propionate 50 MCG/ACT USE 1 SPRAY(S) IN EA CH NOSTRIL NEEDED Nasal for 60 Active BusPIRone HCl 10 MG TAKE 1 TABLET BY MOUTH TWICE DAILY Oral for 30 Active Hydroxychloroquine Sulfate 200 MG TAKE 1 TABLET BY MOUTH ONC E DAILY Oral for 30 Active Gabapentin 100 MG TAKE 1 CAPSULE BY MOUTH THREE TIMES DAILY Oral for 30 Active Albuterol Sulfate HFA 108 (90 Base) MCG/ACT INHALE 2 P UFFS BY MOUTH EVERY 4 HOURS NEEDED Inhalation for 17 Active MedroxyPROGESTERone Acetate 150 MG/ML INJECT 1 INTRAMU SCULARLY EVERY 12 WEEKS Intramuscular for 84 Active Bisoprolol Fumarate 5 MG TAKE 1 TABLET BY MOUTH ONCE DAILY Oral for 9 0 Active EPINEPHrine 0.3 MG/0.3ML INJECT INTRAMUSCULARLY ONCE NEED ED Injection for 1 Active Propranolol HCl 10 MG 1 tablet Orally Once a day Active PROCEDURES from 1990 to 2020-07-11 Procedure Date Ordered Result Body Site Medication: Depo-Provera 150mg/1mL IM (Medroxyprogesterone A cetate) 2020-07-07 N/A RESULTS Component Value Reference Range Test, Urine Reviewed date:07/07/2020 12:11:18 Interpretation:Negative Performing Lab:[facility], [place] [address] Test, Urine Internal QC Acceptable (Y/N) REASON FOR VISIT DISCUSS TUBAL MEDICAL (GENERAL) HISTORY Type Description Date Medical History Lupus- diagnosed November 2019 Medical History [place] Medical History asthma Medical History endometriosis Medical History heart palpitations Medical History anxiety Surgical History tonsillectomy Hospitalization History childbirth Hospitalization History anaphylactic shock 2007 Goals Section No Information Health Concerns No Information MEDICAL EQUIPMENT No Information MENTAL STATUS No Information FUNCTIONAL STATUS No Information ASSESSMENTS Encounter Date Diagnosis Assessment Notes Treatment Notes Treatm ent Clinical Notes Jun, Endometriosis (ICD-10 - N80.9) Jun, Negative test (ICD-10 - Z32.02) Jun, Encounter for surveillance o f injectable contraceptive (ICD-10 - Z30.42) Jun, Family history of bleeding disorder (ICD-10 - Z8 3.2) vWb dz workup ordered today. Jun, Family planning advice (ICD-10 - Z30.09) She was counseled on the risks, benefits, alternatives, and indications of permanent sterilization via laparoscopic bilateral salpingectomy. She understands the risk of regret and remains insistent on proceeding with permanent sterilization. She was offered long acting reversible contraceptives and has declined. She understands the risk of permanent sterilization failure (less than 1%) and her elevated risk of ectopic should she become after this procedure. The patient understands the surgical risks to include: damage to surrounding organs (necessitating additional surgical pr ocedures), hemorrhage (possibly requiring a blood transfusion), infection (necessitating antibiotics and possible additional hospitalization), and poor surgical wound healing and need for additional surgical procedures. She also understands that surgery and anesthesia carry the risk of heart attack, stroke, and/or . PLAN OF TREATMENT Treatment Notes Assessment Notes Clinical Notes Family history of bleeding disorder vWb dz workup ordered today. Family planning advice She was counseled on the risks, benefits, alternatives, and indications of permanent sterilization via laparoscopic bilateral salpingectomy. She understands the risk of regret and remains insistent on proceeding with permanent sterilization. She was offered long acting reversible contraceptives and has declined. She understands the risk of permanent sterilization failure (less than 1%) and her elevated risk of ectopic should she become after this procedure. The patient understands the surgical risks to include: damage to surrounding organs (necessitating additional surgical procedures), hemorrhage (possibly requiring a blood transfusion), infection (necessitating antibiotics and possible additional hospitalization), and poor surgical wound healing and need for additional juany gical procedures. She also understands that surgery and anesthesia carry the risk of heart attack, stroke, and/or . Treatment Notes Test Name Order Date CBC - Complete Blood Count 2020-07-11 PT & APTT 2020-07-11 FACTOR VIII AG ([place]) 2020-07-11 FACTOR 8 RISTOCETIN COFACTOR 2020-07-11 Next Appt Details Provider Name:Kodi Moe, 08:20:00 AM, [address] [place], [phone], Insurance Providers Payer Name Payer Address Payer Phone Insured Name Patient Relati onship to Insured Coverage Start Date Coverage End Date [facility] [address] [place] [address] JORDAN SHIRLEY self
--- OUTSIDE RECORDS SUMMARY | 2020-08-19 07:36 | CCD ---
Author Organization Unknown Address [address] [place] [id number] Phone [phone] Care Team Providers Care Repair Department Supervisor Name Role Phone Oir Pardo Stephanie Unavailable Unavailable Allergies Code Code System Name Reaction Severity Status Onset 2669 RxNorm Codeine Active 03/23/2016 Notes: SULFA ANTIBIOTICS - Reaction: ra sh | BEE STINGS - Reaction: unable to breathe | NOVICAINE - Reaction: rash Medications Name Status Start Date Stop Date albuterol sulfate HFA 90 mcg/actuation a erosol inhaler INHALE 2 PUFFS BY MOUTH EVERY 4 HOURS NEEDED Active Not available bisoprolol fumarate 5 mg tablet TAKE 1 TABLET BY MOUTH ONCE DAILY Active Not a vailable buspirone 10 mg tablet TAKE 1 TABLET BY MOUTH TWICE DAILY Active Not available epinephrine 0.3 mg/0.3 mL injection, aut o-injector INJECT INTRAMUSCULARLY ONCE NEEDED Active N ot available escitalopram 10 mg tablet TAKE 1 TABLET BY MOUTH ONCE DAILY Active Not a vailable escitalopram 20 mg tablet TAKE 1 TABLET BY MOUTH ONCE DAILY Active Not a vailable fluticasone propionate 50 mcg/actuation nasal spray,suspension USE 1 SPRAY(S) IN EACH NOSTRIL NEEDED Active Not available gabapentin 100 mg capsule TAKE 1 CAPSULE BY MOUTH THREE TIMES DAILY Active Not available hydroxychloroquine 200 mg tablet TAKE 1 TABLET BY MOUTH ONCE DAILY Active Not a vailable medroxyprogesterone 150 mg/mL intramuscu lar syringe INJECT 1 INTRAMUSCULARLY EVERY 12 WEEKS Active Not available montelukast 10 mg tablet TAKE 1 TABLET BY MOUTH ONCE DAILY Active Not a vailable propranolol 10 mg tablet TAKE 1 TABLET BY MOUTH TWICE DAILY Active Not available Problems Name Status Onset Date Source Psoriasis Active 03/23/2016 History Clinical Finding Active 03/23/2016 History Dental Caries on Smooth Surface Penetrating into Pulp Active 10/17/2017 History Mild Intermittent Asthma Active 09/07/2018 History Atrial Septal Defect Active 09/07/2018 History Palpitations Active 09/07/2018 History Endocrine/metabolic Screening Active 09/07/2018 Hi story Snoring Active 10/05/2018 History Finding of Body Mass Index Active 10/17/2018 Histo ry Anxiety Active 01/22/2019 History 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 Past Encounters 07/02/2020 Adult Health Examination Austyn Slaughter MD: [address] [place] [phone], Ph. Social History None recorded. Vaccine List None recorded. Plan of Care Reminders Provider Appointments None recorded. Lab None recorded. Referral None recorded. Procedures None recorded. Surgeries None recorded. Imaging None recorded. Vitals 02/11/2020 Height Weight Blood Pressure 67 in 126 lbs 4 oz 111/75 mm[Hg] 02/19/2019 Height Weight Blood Pressure 67 in 123 lbs 11.2 oz 117/74 mm[Hg] 01/22/2019 Height Weight Blood Pressure 67 in 120 lbs 118/85 mm[Hg] 10/17/2018 Height Weight Blood Pressure 67 in 124 lbs 6.08 oz 119/81 mm[Hg] 10/05/2018 Height Weight Blood Pressure 67 in 125 lbs 120/76 mm[Hg] 09/07/2018 Height Weight Blood Pressure 67 in 123 lbs 4 oz 131/84 mm[Hg]"
--- OUTSIDE RECORDS SUMMARY | 2020-08-19 07:36 | CCD ---
Author Author [facility] Organization [facility] Address Unknown Phone Unavailable Care Team Providers Care Parts Sales Counterperson Name Role Phone Kodi Moe Unavailable PROBLEMS Type Condition ICD9-CM Code [id number] Code Onset Dates Condition S tatus SNOMED Code Notes Problem Endometriosis N80.9 Active [id number] ALLERGIES Allergen (clinical drug ingredient) Drug/Non Drug Allergy do cumented on EMR Reaction Allergy Type Onset Date Status Seasonal Unknown Non Drug Allergy Active novacain Unknown Non Drug Allergy Active codeine Unknown Non Drug Allergy Active Sulfacet-R Unknown Drug Allergy Active ENCOUNTERS from 1990 to 2020-07-10 Encounter Location Date Provider Diagnosis [facility] [address] [place] [phone] Jun, Kodi Moe IMMUNIZATIONS Vaccine Route Administration Date Status Depo-Provera [...] REASON FOR REFERRAL No Information VITAL SIGNS No information MEDICATIONS Medication SIG (Take, Route, Frequency, Duration) [...] tablet Orally Once a day Active PROCEDURES No Information RESULTS No Results REASON FOR VISIT AUTHORIZATION MEDICAL (GENERAL) HISTORY Type Description Date Medical History Lupus- diagnosed November 2019 Medical History [place] Medical History asthma Medical History endometriosis Medical History heart palpitations Medical History anxiety Surgical History tonsillectomy Hospitalization History childbirth Hospitalization History anaphylactic shock 2007 Goals Section No Information Health Concerns No Information MEDICAL EQUIPMENT No Information MENTAL STATUS No Information FUNCTIONAL STATUS No Information ASSESSMENTS No Information PLAN OF TREATMENT Next Appt Details Provider Name:Kodi Moe, 08:20:00 AM, [address] [place], [phone], Insurance Providers Payer Name Payer Address Payer Phone Insured Name Patient Relati onship to Insured Coverage Start Date Coverage End Date P [address] [place] [phone] [facility]ORD[facility] self
--- OUTSIDE RECORDS SUMMARY | 2020-08-19 07:37 | CCD ---
Author Author [facility] Organization [facility] Address Unknown Phone Unavailable Care Team Providers Care Assistant Food Service Director Name Role Phone Stephanie Slaughter MD Unavailable Unavailable Stephanie Slaughter MD Unavailable Unavailable Stephanie Slaughter MD Unavailable Unavailable Stephanie Slaughter MD Unavailable Unavailable Stephanie Slaughter MD Unavailable Unavailable Stephanie Slaughter MD Unavailable Unavailable Stephanie Slaughter MD Unavailable Unavailable Stephanie Slaughter MD Unavailable Unavailable Stephanie Slaughter MD Unavailable Unavailable Stephanie Slaughter MD Unavailable Unavailable Stephanie Slaughter MD Unavailable Unavailable Stephanei Slaughter MD Unavailable Unavailable Stephanie Slaughter MD Unavailable Unavailable Stephanie Slaughter MD Unavailable Unavailable Stephanie Slaughter MD Unavailable Unavailable Stephanie Slaughter MD Unavailable Unavailable Stephanie Slaughter MD Unavailable Unavailable Stephanie Slaughter MD Unavailable Unavailable Stephanie Slaughter MD Unavailable Unavailable Stephanie Slaughter MD Unavailable Unavailable Stephanie Slaughter MD Unavailable Unavailable Stephanie Slaughter MD Unavailable Unavailable Stephanie Slaughter MD Unavailable Unavailable Stephanie Slaughter MD Unavailable Unavailable Stephanie Slaughter MD Unavailable Unavailable Stephanie Slaughter MD Unavailable Unavailable Stephanie Slaughter MD Unavailable Unavailable Stephanie Slaughter MD Unavailable Unavailable Stephanie Slaughter MD Unavailable Unavailable Stephanie Slaughter MD Unavailable Unavailable Stephanie Slaughter MD Unavailable Unavailable Stephanie Slaughter MD Unavailable Unavailable Stephanie Slaughter MD Unavailable Unavailable Stephanie Slaughter MD Unavailable Unavailable Stephanie Slaughter MD Unavailable Unavailable Stephanie Slaughter MD Unavailable Unavailable Stephanie Slaughter MD Unavailable Unavailable Stephanie Slaughter MD Unavailable Unavailable Stephanie Slaughter MD Unavailable Unavailable Stephanie Slaughter MD Unavailable Unavailable Stephanie Slaughter MD Unavailable Unavailable Stephanie Slaughter MD Unavailable Unavailable Stephanie Slaughter MD Unavailable Unavailable Stephanie Slaughter MD Unavailable Unavailable Stephanie Slaughter MD Unavailable Unavailable Stephanie Slaughter MD Unavailable Unavailable Stephanie Slaughter MD Unavailable Unavailable Stephanie Slaughter MD Unavailable Unavailable Stephanie Slaughter MD Unavailable Unavailable Stephanie Slaughter MD Unavailable Unavailable Stephanie Slaughter MD Unavailable Unavailable Stephanie Slaughter MD Unavailable Unavailable Stephanie Slaughter MD Unavailable Unavailable Stephanie Slaughter MD Unavailable Unavailable Stephanie Slaughter MD Unavailable Unavailable Stephanie Slaughter MD Unavailable Unavailable Stephanie Slaughter MD Unavailable Unavailable Stephanie Slaughter MD Unavailable Unavailable Stephanie Slaughter MD Unavailable Unavailable Stephanie Slaughter MD Unavailable Unavailable Stephanie Slaughter MD Unavailable Unavailable Stephanie Slaughter MD Unavailable Unavailable Stephanie Slaughter MD Unavailable Unavailable Stephanie Slaughter MD Unavailable Unavailable Stephanie Slaughter MD Unavailable Unavailable Stephanie Slaughter MD Unavailable Unavailable Stephanie Slaughter MD Unavailable Unavailable Stephanie Slaughter MD Unavailable Unavailable Stephanie Slaughter MD Unavailable Unavailable Stephanie Slaughter MD Unavailable Unavailable Stephanie Slaughter MD Unavailable Unavailable Stephanie Slaughter MD Unavailable Unavailable Stephanie Slaughter MD Unavailable Unavailable Stephanie Slaughter MD Unavailable Unavailable Stephanie Slaughter MD Unavailable Unavailable Stephanie Slaughter MD Unavailable Unavailable Stephanie Slaughter MD Unavailable Unavailable Stephanie Slaughter MD Unavailable Unavailable Stephanie Slaughter MD Unavailable Unavailable Stephanie Slaughter MD Unavailable Unavailable Stephanie Slaughter MD Unavailable Unavailable Stephanie Slaughter MD Unavailable Unavailable Stephanie Slaughter MD Unavailable Unavailable Stephanie Slaughter MD Unavailable Unavailable Stephanie Slaughter MD Unavailable Unavailable Stephanie Slaughter MD Unavailable Unavailable Stephanie Slaughter MD Unavailable Unavailable Stephanie Slaughter MD Unavailable Unavailable Stephanie Slaughter MD Unavailable Unavailable NOEMY MURRAY MD Unavailable Unavailable NOEMY MURRAY MD Unavailable Unavailable NOEMY MURRAY MD Unavailable Unavailable NOEMY MURRAY MD Unavailable Unavailable NOEMY MURRAY MD Unavailable Unavailable NOEMY MURRAY MD Unavailable Unavailable NOEMY MURRAY MD Unavailable Unavailable NOEMY MURRAY MD Unavailable Unavailable NOEMY MURRAY MD Unavailable Unavailable NOEMY MURRAY MD Unavailable Unavailable NOEMY MURRAY MD Unavailable Unavailable NOEMY MURRAY MD Unavailable Unavailable NOEMY MURRAY MD Unavailable Unavailable NOEMY MURRAY MD Unavailable Unavailable NOEMY MURRAY MD Unavailable Unavailable NOEMY MURRAY MD Unavailable Unavailable NOEMY MURRAY MD Unavailable Unavailable NOEMY MURRAY MD Unavailable Unavailable NOEMY MURRAY MD Unavailable Unavailable NOEMY MURRAY MD Unavailable Unavailable NOEMY MURRAY MD Unavailable Unavailable NOEMY MURRAY MD Unavailable Unavailable NOEMY MURRAY MD Unavailable Unavailable NOEMY MURRAY MD Unavailable Unavailable NOEMY MURRAY MD Unavailable Unavailable NOEMY MURRAY MD Unavailable Unavailable NOEMY MURRAY MD Unavailable Unavailable NOEMY MURRAY MD Unavailable Unavailable NOEMY MURRAY MD Unavailable Unavailable NOEMY MURRAY MD Unavailable Unavailable NOEMY MURRAY MD Unavailable Unavailable NOMEY MURRAY MD Unavailable Unavailable NOEMY MURRAY MD Unavailable Unavailable NOEMY MURRAY MD Unavailable Unavailable NOEMY MURRAY MD Unavailable Unavailable NOEMY MURRAY MD Unavailable Unavailable NOEMY MURRAY MD Unavailable Unavailable NOEMY MURRAY MD Unavailable Unavailable NOEMY MURRAY MD Unavailable Unavailable NOEMY MURRAY MD Unavailable Unavailable NOEMY MURRAY MD Unavailable Unavailable NOEMY MURRAY MD Unavailable Unavailable NOEMY MURRAY MD Unavailable Unavailable NOEMY MURRAY MD Unavailable Unavailable NOEMY MURRAY MD Unavailable Unavailable NOEMY MURRAY MD Unavailable Unavailable NOEMY MURRAY MD Unavailable Unavailable NOEMY MURRAY MD Unavailable Unavailable NOEMY MURRAY MD Unavailable Unavailable NOEMY MURRAY MD Unavailable Unavailable NOEMY MURRAY MD Unavailable Unavailable NOEMY MURRAY MD Unavailable Unavailable NOEMY MURRAY MD Unavailable Unavailable NOEMY MURRAY MD Unavailable Unavailable NOEMY MURRAY MD Unavailable Unavailable NOEMY MURRAY MD Unavailable Unavailable NOEMY MURRAY MD Unavailable Unavailable NOEMY MURRAY MD Unavailable Unavailable NOEMY MURRAY MD Unavailable Unavailable NOEMY MURRAY MD Unavailable Unavailable NOEMY MURRAY MD Unavailable Unavailable NOEMY MURRAY MD Unavailable Unavailable NOEMY MURRAY MD Unavailable Unavailable NOEMY MURRAY MD Unavailable Unavailable NOEMY MURRAY MD Unavailable Unavailable NOEMY MURRAY MD Unavailable Unavailable NOEMY MURRAY MD Unavailable Unavailable NOEMY MURRAY MD Unavailable Unavailable NOEMY MURRAY MD Unavailable Unavailable NOEMY MURRAY MD Unavailable Unavailable NEOMY MURRAY MD Unavailable Unavailable NOEMY MURRAY MD Unavailable Unavailable NOEMY MURRAY MD Unavailable Unavailable NOEMY MURRAY MD Unavailable Unavailable NOEMY MURRAY MD Unavailable Unavailable NOEMY MURRAY MD Unavailable Unavailable NOEMY MURRAY MD Unavailable Unavailable NOEMY MURRAY MD Unavailable Unavailable NOEMY MURRAY MD Unavailable Unavailable NOEMY MURRAY MD Unavailable Unavailable NOEMY MURRAY MD Unavailable Unavailable NOEMY MURRAY MD Unavailable Unavailable NOEMY MURRAY MD Unavailable Unavailable NOEMY MURRAY MD Unavailable Unavailable Caitlin QUEVEDO Unavailable Unavailable Nusrat NAM MD Unavailable Unavailable Nusrat NAM MD Unavailable Unavailable Nusrat NAM MD Unavailable Unavailable Nusrat NAM MD Unavailable Unavailable Nusrat NAM MD Unavailable Unavailable Nusrat ANM MD Unavailable Unavailable Nusrat NAM MD Unavailable Unavailable Nusrat NAM MD Unavailable Unavailable Nusrat NAM MD Unavailable Unavailable Nusrat NAM MD Unavailable Unavailable Nusrat NAM MD Unavailable Unavailable Nusrat NAM MD Unavailable Unavailable Nusrat NAM MD Unavailable Unavailable Nusrat NAM MD Unavailable Unavailable Nusrat NAM MD Unavailable Unavailable Nusrat NAM MD Unavailable Unavailable Nusrat NAM MD Unavailable Unavailable Nusrat NAM MD Unavailable Unavailable Nusrat NAM MD Unavailable Unavailable Nusrat NAM MD Unavailable Unavailable Nusrat NAM MD Unavailable Unavailable Nusrat NAM MD Unavailable Unavailable Nusrat NAM MD Unavailable Unavailable Nusart ANM MD Unavailable Unavailable Nusrat NAM MD Unavailable Unavailable Nusrat NAM MD Unavailable Unavailable Nusrat NAM MD Unavailable Unavailable Nusrat NAM MD Unavailable Unavailable Nusrat NAM MD Unavailable Unavailable ISABELANusrat PEGUERO MD Unavailable Unavailable Nusrat NAM MD Unavailable Unavailable Nusrat NAM MD Unavailable Unavailable Nusrat NAM MD Unavailable Unavailable Nusrat NAM MD Unavailable Unavailable Nusrat NAM MD Unavailable Unavailable Nusrat NAM MD Unavailable Unavailable Nusrat NAM MD Unavailable Unavailable Nusrat NAM MD Unavailable Unavailable Nusrat NAM MD Unavailable Unavailable Nusrat NAM MD Unavailable Unavailable Nusrat NAM MD Unavailable Unavailable Nusrat NAM MD Unavailable Unavailable Nusrat NAM MD Unavailable Unavailable Nusrat NAM MD Unavailable Unavailable Nusrat NAM MD Unavailable Unavailable Nusrat NAM MD Unavailable Unavailable Nusrat NAM MD Unavailable Unavailable Nusrat NAM MD Unavailable Unavailable Nusrat NAM MD Unavailable Unavailable Nusrat NAM MD Unavailable Unavailable Nusrat NAM MD Unavailable Unavailable Nusrat NAM MD Unavailable Unavailable Nusrat NAM MD Unavailable Unavailable Nusrat NAM MD Unavailable Unavailable Nusrat NAM MD Unavailable Unavailable Nusrat NAM MD Unavailable Unavailable Nusrat NAM MD Unavailable Unavailable Nusrat NAM MD Unavailable Unavailable Nusrat NAM MD Unavailable Unavailable Nusrat NAM MD Unavailable Unavailable Nusrat NAM MD Unavailable Unavailable Nusrat NAM MD Unavailable Unavailable Nusrat NAM MD Unavailable Unavailable Nusrat NAM MD Unavailable Unavailable Nusrat NAM MD Unavailable Unavailable Nusrat NAM MD Unavailable Unavailable Nusrat NAM MD Unavailable Unavailable Nusrat NAM MD Unavailable Unavailable Nusrat NAM MD Unavailable Unavailable Nusrat NAM MD Unavailable Unavailable Nusrat NAM MD Unavailable Unavailable ISABELA, Nusrat JETER MD Unavailable Unavailable ISABELA, Nusrat JETER MD Unavailable Unavailable ISABELA, Nusrat JETER MD Unavailable Unavailable ISABELA, Nusrat JETER MD Unavailable Unavailable ISABELA, Nusrat JETER MD Unavailable Unavailable ISABELA, Nusrat JETER MD Unavailable Unavailable ISABELA, Nusrat JETER MD Unavailable Unavailable ISABELA, Nusrat JETER MD Unavailable Unavailable ISABELA, Nusrat JETER MD Unavailable Unavailable ISABELA, Nusrat JETER MD Unavailable Unavailable ISABELA, Nusrat JETER MD Unavailable Unavailable ISABELA, Nusrat JETER MD Unavailable Unavailable SEO, GABRIEL ORI RPA-C Unavailable Unavailable SEO, GABRIEL ORI RPA-C Unavailable Unavailable SEO, GABRIEL ORI RPA-C Unavailable Unavailable SEO, GABRIEL ORI RPA-C Unavailable Unavailable SEO, GABRIEL ORI RPA-C Unavailable Unavailable SEO, GABRIEL ORI RPA-C Unavailable Unavailable SEO, GABRIEL ORI RPA-C Unavailable Unavailable SEO, GABRIEL ORI RPA-C Unavailable Unavailable SEO, GABRIEL ORI RPA-C Unavailable Unavailable SEO, GABRIEL ORI RPA-C Unavailable Unavailable SEO, GABRIEL ORI RPA-C Unavailable Unavailable SEO, GABRIEL ORI RPA-C Unavailable Unavailable SEO, GABRIEL ORI RPA-C Unavailable Unavailable SEO, GABRIEL ORI RPA-C Unavailable Unavailable SEO, GABRIEL ORI RPA-C Unavailable Unavailable SEO, GABRIEL ORI RPA-C Unavailable Unavailable SEO, GABRIEL ORI RPA-C Unavailable Unavailable SEO, GABRIEL ORI RPA-C Unavailable Unavailable SEO, GABRIEL ORI RPA-C Unavailable Unavailable SEO, GABRIEL ORI RPA-C Unavailable Unavailable SEO, GABRIEL ORI RPA-C Unavailable Unavailable SEO, GABRIEL ORI RPA-C Unavailable Unavailable SEO, GABRIEL ORI RPA-C Unavailable Unavailable SEO, GABRIEL ORI RPA-C Unavailable Unavailable SEO, GABRIEL ORI RPA-C Unavailable Unavailable SEO, GABRIEL ORI RPA-C Unavailable Unavailable SEO, GABRIEL ORI RPA-C Unavailable Unavailable SEO, GABRIEL ORI RPA-C Unavailable Unavailable SEO, GABRIEL ORI RPA-C Unavailable Unavailable SEO, GABRIEL ORI RPA-C Unavailable Unavailable SEO, GABRIEL ORI RPA-C Unavailable Unavailable SEO, GABRIEL ORI RPA-C Unavailable Unavailable SEO, GABRIEL ORI RPA-C Unavailable Unavailable SEO, GABRIEL ORI RPA-C Unavailable Unavailable SEO, GABRIEL ORI RPA-C Unavailable Unavailable SEO, GABRIEL ORI RPA-C Unavailable Unavailable SEO, GABRIEL ORI RPA-C Unavailable Unavailable SEO, GABRIEL ORI RPA-C Unavailable Unavailable SEO, GABRIEL ORI RPA-C Unavailable Unavailable LETTIERE, A LELA PA Unavailable Unavailable LETTIERE, A LELA PA Unavailable Unavailable LETTIERE, A LELA PA Unavailable Unavailable LETTIERE, A LELA PA Unavailable Unavailable LETTIERE, A LELA PA Unavailable Unavailable LETTIERE, A LELA PA Unavailable Unavailable LETTIERE, A LELA PA Unavailable Unavailable LETTIERE, A LELA PA Unavailable Unavailable LETTIERE, A LELA PA Unavailable Unavailable LETTIERE, A LELA PA Unavailable Unavailable LETTIERE, A LELA PA Unavailable Unavailable LETTIERE, A LELA PA Unavailable Unavailable LETTIERE, A LELA PA Unavailable Unavailable LETTIERE, A LELA PA Unavailable Unavailable LETTIERE, A LELA PA Unavailable Unavailable LETTIERE, A LELA PA Unavailable Unavailable LETTIERE, A LELA PA Unavailable Unavailable LETTIERE, A LELA PA Unavailable Unavailable LETTIERE, A LELA PA Unavailable Unavailable LETTIERE, A LELA PA Unavailable Unavailable LETTIERE, A LELA PA Unavailable Unavailable LETTIERE, A LELA PA Unavailable Unavailable LETTIERE, A LELA PA Unavailable Unavailable LETTIERE, A LELA PA Unavailable Unavailable LETTIERE, A LELA PA Unavailable Unavailable LETTIERE, A LELA PA Unavailable Unavailable LETTIERE, A LELA PA Unavailable Unavailable LETTIERE, A LELA PA Unavailable Unavailable LETTIERE, A LELA PA Unavailable Unavailable Jac Gabr, Aram Novoa MD Unavailable Unavailable Jac Gabr, Aram Novoa MD Unavailable Unavailable Jac Gabr, Aram Novoa MD Unavailable Unavailable Jac Gabr, Aram Novoa MD Unavailable Unavailable Jac Gabr, Aram Novoa MD Unavailable Unavailable Jac Gabr, Aram Novoa MD Unavailable Unavailable Jac Gabr, Aram Novoa MD Unavailable Unavailable Jac Gabr, Aram Novoa MD Unavailable Unavailable Jac Gabr, Aram Novoa MD Unavailable Unavailable Jac Gabr, Aram Novoa MD Unavailable Unavailable Jac Gabr, Aram Novoa MD Unavailable Unavailable Jac Gabr, Aram Novoa MD Unavailable Unavailable Jac Gabr, Aram Novoa MD Unavailable Unavailable Fish, Shari Kuhn MPAS, PA-C Unavailable Unavailabl e Fish, [facility], PA-C Unavailable Unavailabl e Fish, [facility], PA-C Unavailable Unavailabl e Fish, [facility], PA-C Unavailable Unavailabl e Fish, [facility], PA-C Unavailable Unavailabl e Fish, [facility], PA-C Unavailable Unavailabl e Fish, [facility], PA-C Unavailable Unavailabl e Fish, [facility], PA-C Unavailable Unavailabl e Fish, [facility], PA-C Unavailable Unavailabl e Fish, [facility], PA-C Unavailable Unavailabl e Fish, [facility], PA-C Unavailable Unavailabl e Fish, [facility], PA-C Unavailable Unavailabl e Fish, [facility], PA-C Unavailable Unavailabl e Fish, [facility], PA-C Unavailable Unavailabl e Fish, [facility], PA-C Unavailable Unavailabl e Fish, [facility], PA-C Unavailable Unavailabl e Fish, [facility], PA-C Unavailable Unavailabl e Fish, [facility], PA-C Unavailable Unavailabl e Fish, [facility], PA-C Unavailable Unavailabl e Fish, [facility], PA-C Unavailable Unavailabl e Fish, [facility], PA-C Unavailable Unavailabl e Fish, [facility], PA-C Unavailable Unavailabl e Fish, [facility], PA-C Unavailable Unavailabl e Fish, [facility], PA-C Unavailable Unavailabl e Fish, [facility], PA-C Unavailable Unavailabl e Fish, [facility], PA-C Unavailable Unavailabl e Fish, [facility], PA-C Unavailable Unavailabl e Fish, [facility], PA-C Unavailable Unavailabl e Fish, [facility], PA-C Unavailable Unavailabl e Fish, [facility], PA-C Unavailable Unavailabl e Fish, [facility], PA-C Unavailable Unavailabl e Fish, [facility], PA-C Unavailable Unavailabl e Fish, [facility], PA-C Unavailable Unavailabl e Fish, Shari Suleatha LADDS, PA-C Unavailable Unavailabl e [place], [place] Unavailable Nusrat NAM MD Unavailable Unavailable Nusrat NAM MD Unavailable Unavailable Nusrat NAM MD Unavailable Unavailable Nusrat NAM MD Unavailable Unavailable Nusrat NAM MD Unavailable Unavailable Nusrat NAM MD Unavailable Unavailable Nusrat NAM MD Unavailable Unavailable Nusrat NAM MD Unavailable Unavailable Nusrat NAM MD Unavailable Unavailable Nusrat NAM MD Unavailable Unavailable Nusrat NAM MD Unavailable Unavailable Nusrat NAM MD Unavailable Unavailable Nusrat NAM MD Unavailable Unavailable Nusrat NAM MD Unavailable Unavailable Nusrat NAM MD Unavailable Unavailable Nusrat NAM MD Unavailable Unavailable Nusrat NAM MD Unavailable Unavailable Nusrat NAM MD Unavailable Unavailable Nusrat NAM MD Unavailable Unavailable Nusrat NAM MD Unavailable Unavailable Nusrat NAM MD Unavailable Unavailable Nusrat NAM MD Unavailable Unavailable Nusrat NAM MD Unavailable Unavailable Nusrat NAM MD Unavailable Unavailable Nusrat NAM MD Unavailable Unavailable Nusrat NAM MD Unavailable Unavailable Nusrat NAM MD Unavailable Unavailable Nusrat NAM MD Unavailable Unavailable Nusrat NAM MD Unavailable Unavailable Nusrat NAM MD Unavailable Unavailable Nusrat NAM MD Unavailable Unavailable Nusrat NAM MD Unavailable Unavailable Nusrat NAM MD Unavailable Unavailable Nusrat NAM MD Unavailable Unavailable Nusrat NAM MD Unavailable Unavailable Nusrat NAM MD Unavailable Unavailable Nusrat NAM MD Unavailable Unavailable Nusrat NAM MD Unavailable Unavailable Nusrat NAM MD Unavailable Unavailable Nusrat NAM MD Unavailable Unavailable Nusrat NAM MD Unavailable Unavailable Nusrat NAM MD Unavailable Unavailable Nusrat NAM MD Unavailable Unavailable Nusrat NAM MD Unavailable Unavailable Nusrat NAM MD Unavailable Unavailable Nusrat NAM MD Unavailable Unavailable Nusrat NAM MD Unavailable Unavailable Nusrat NAM MD Unavailable Unavailable Nusrat NAM MD Unavailable Unavailable Nusrat NAM MD Unavailable Unavailable Nusrat NAM MD Unavailable Unavailable Nusrat NAM MD Unavailable Unavailable Nusrat NAM MD Unavailable Unavailable Nusrat NAM MD Unavailable Unavailable Nusrat NAM MD Unavailable Unavailable Nusrat NAM MD Unavailable Unavailable Nusrat NAM MD Unavailable Unavailable Nusrat NAM MD Unavailable Unavailable Nusrat NAM MD Unavailable Unavailable Nusrat NAM MD Unavailable Unavailable Nusrat NAM MD Unavailable Unavailable Nusrat NAM MD Unavailable Unavailable Nusrat NAM MD Unavailable Unavailable Nusrat NAM MD Unavailable Unavailable Nusrat NAM MD Unavailable Unavailable Nusrat NAM MD Unavailable Unavailable Nusrat NAM MD Unavailable Unavailable Nusrat NAM MD Unavailable Unavailable Nusrat NAM MD Unavailable Unavailable Nusrat NAM MD Unavailable Unavailable Nusrat NAM MD Unavailable Unavailable Nusrat NAM MD Unavailable Unavailable Nusrat NAM MD Unavailable Unavailable Nusrat NAM MD Unavailable Unavailable Nusrat NAM MD Unavailable Unavailable Nusrat NAM MD Unavailable Unavailable Nusrat NAM MD Unavailable Unavailable Nusrat NAM MD Unavailable Unavailable Nusrat NAM MD Unavailable Unavailable Nusrat NAM MD Unavailable Unavailable Nusrat NAM MD Unavailable Unavailable Nusrat NAM MD Unavailable Unavailable Nusrat NAM MD Unavailable Unavailable Lisa Orosco CSR RETAIL CSR RETAIL Unavailable Unavailable Ileana Dasilva Unavailable [facility], RFROST SEO PA ORI Unavailable Unavailable Feola, T Leticia PA Unavailable Unavailable Feola, T Leticia PA Unavailable Unavailable Feola, T Leticia PA Unavailable Unavailable Feola, T Leticia PA Unavailable Unavailable Feola, T Leticia PA Unavailable Unavailable Feola, T Leticia PA Unavailable Unavailable Feola, T Leticia PA Unavailable Unavailable Feola, T Leticia PA Unavailable Unavailable Feola, T Leticia PA Unavailable Unavailable Feola, T Leticia PA Unavailable Unavailable Feola, T Leticia PA Unavailable Unavailable Feola, T Leticia PA Unavailable Unavailable Feola, T Leticia PA Unavailable Unavailable Feola, T Leticia PA Unavailable Unavailable Feola, T Leticia PA Unavailable Unavailable Feola, T Leticia PA Unavailable Unavailable Feola, T Leticia PA Unavailable Unavailable Feola, T Leticia PA Unavailable Unavailable Feola, T Leticia PA Unavailable Unavailable Feola, T Leticia PA Unavailable Unavailable Feola, T Leticia PA Unavailable Unavailable Feola, T Leticia PA Unavailable Unavailable Feola, T Leticia PA Unavailable Unavailable Feola, T Leticia PA Unavailable Unavailable Feola, T Leticia PA Unavailable Unavailable Feola, T Leticia PA Unavailable Unavailable Feola, T Leticia PA Unavailable Unavailable Feola, T Leticia PA Unavailable Unavailable Feola, T Leticia PA Unavailable Unavailable Feola, T Leticia PA Unavailable Unavailable Feola, T Leticia PA Unavailable Unavailable Feola, T Leticia PA Unavailable Unavailable Feola, T Leticia PA Unavailable Unavailable Feola, T Leticia PA Unavailable Unavailable Feola, T Leticia PA Unavailable Unavailable Feola, T Leticia PA Unavailable Unavailable Feola, T Leticia PA Unavailable Unavailable Re-disclosure Warning The records that you are about to access may contain information from federally-assisted alcohol or drug abuse programs. If such information is present, then the following federally mandated warning applies: This information has been disclosed to you from records protected by federal confidentiality rules (42 CFR part 2). The federal rules prohibit you from making any further disclosure of this information unless further disclosure is expressly permitted by the written consent of the person to whom it pertains or as otherwise permitted by 42 CFR part 2. A general authorization for the release of medical or other information is NOT sufficient for this purpose. The Federal rules restrict any use of the information to criminally investigate or prosecute any alcohol or drug abuse patient.The records that you are about to access may contain highly sensitive health information, the redisclosure of which is protected by Article 27-F of the [facility] Public Health law. If you continue you may have access to information: Regarding HIV / AIDS; Provided by facilities licensed or operated by the [facility] Office of Mental Health; or Provided by the [facility] Office for People With Developmental Disabilities. If such information is present, then the following [facility] mandated warning applies: This information has been disclosed to you from confidential records which are protected by state law. State law prohibits you from making any further disclosure of this information without the specific written consent of the person to whom it pertains, or as otherwise permitted by law. Any unauthorized further disclosure in violation of state law may result in a fine or retirement sentence or both. A general authorization for the release of medical or other information is NOT sufficient authorization for further disc losure. Allergies and Adverse Reactions Type Description Substance Reaction Status Data Source(s ) Drug Class SULFA ANTIBIOTICS SULFA ANTIBIOTICS [facility] DRUG INGREDI CODEINE Codeine [facility] Family History Family Member Name Family Member Gender Family Member Status Date o f Status Description Data Source(s) Unknown Male Problem [facility] ([facility]) Unknown Unknown Problem MEDENT ([facility]) Unknown Male Problem MEDENT ([facility]) Encounters Encounter Providers Location Date Indications Data Source(s ) Outpatient Attender: LEATHA QUEVEDO 12/02/2020 12:00:00 AM [facility] Outpatient Attender: Leticia WOODY 021 12:15:24 PM EST - 07/29/2020 12:36:07 PM EST [facility] ([facility] ) Unknown [address] [facility] [place] [address] 07/10/2020 12:00:00 AM EST eCW1 ([facility]) Outpatient [address] [facility] [place] [address] 07/07/2020 12:00:00 AM EST eCW1 ([facility]) Austyn Slaughter MD: [address] [place] [phone], Ph. Attender: Austyn Slaughter MD [facility] Medical 07/02/2020 12:00:00 AM EST [facility] ([facility]) Outpatient Attender: LEATHA QUEVEDO [id number] 06/03/2020 12:00 :00 AM EST Arthropathic psoriasis, unspecified [facility] Arthropathic psoriasis, unspecified Outpatient Attender: Hattie STACK PA-C Physical Therapy 05/11/2020 12:45:00 PM EST MEDENT ([facility]) OFFICE OUTPATIENT NEW 30 MINUTES Attender: Hattie STACK PA-C Physical Therapy 04/28/2020 08:00:00 AM EST MEDENT ([facility]) Outpatient Attender: ALIYAH EARL [facility] ALIYAH TORREZ [facility] 07/2019 11:10:[address] [facility] Outpatient Attender: ORI SEO RPA-C [facility] 03/27/2020 10:48:[address] [facility] Outpatient Attender: ALIYAH TORREZ [facility] 07/2019 10:22:[address] [facility] Outpatient Attender: ORI SEO RPA-C [facility] 03/27/2020 10:22:[address] [facility] Outpatient Attender: ORI SEO RPA-C [facility] 02/19/2020 02:02:[address] [facility] 02:02:[address] [facility] Outpatient Attender: ORI SEO RPA-C [facility] 02/11/2020 04:28:[address] [facility] Outpatient Attender: ORI SEO RPA-C 02/11/2020 03:32:[address] [facility] Outpatient Attender: ORI SEO RPA-C 02/11/2020 03:31:[address] [facility] Outpatient Attender: RK BECKMAN 02/11/2020 03:22:[address] [facility] Outpatient Attender: RK BECKMAN 01/07/2020 10:47:[address] [facility] [id number]"Psychotherapy Attender: Ileana Dasilva [facility] 12/25/2019 11:00:00 AM EDT - 12/25/2019 11:00:00 AM EDT [facility] ([facility]) Attender: Ileana Dasilva 12/25/2019 12:00:00 AM EDT [facility] ([facility]) Outpatient Attender: Bright Dennis MD [id number]-XXUCRHE 12/04/2019 12:00:0 0 AM [facility] Outpatient Attender: Bright DavisA-XXUCMONSEE 11/27/2019 12:00:0 0 AM [facility] [id number]"Psychotherapy Attender: Ileana Dasilva [facility] 10/25/2019 10:00:00 AM EDT - 10/25/2019 10:00:00 AM EDT [facility] ([facility]) Attender: Ileanaaram Kamaraus 10/25/2019 12:00:00 AM EDT [facility] ([facility]) [place] [address]"Psychotherapy Attender: Ileana Dasilva [facility] 10/11/2019 09:00:00 AM EDT - 10/11/2019 09:00:00 AM EDT [facility] ([facility]) Attender: Ileana Dasilva 10/11/2019 12:00:00 AM EDT [facility] ([facility]) [place] [address]"Psychotherapy Attender: Ileana Dasilva [facility] 09/27/2019 08:00:00 AM EDT - 09/27/2019 08:00:00 AM EDT [facility] ([facility]) Attender: Ileana Brown 09/27/2019 12:00:00 AM EDT [facility] ([facility]) Outpatient Attender: STEFFANY NAM MD 09/13/2019 10:13:[address] [facility] Outpatient Attender: STEFFANY NAM MD 09/13/2019 10:12:00 A M [facility] Psychiatric Diagnostic Evaluation (Non-Medical) [facility] 03:15:00 AM EDT - 09/04/2019 03:15:00 AM EDT [facility] ([facility]) Attender: Ileana Dasilva 09/04/2019 12:00:00 AM EDT [facility] ([facility]) Brief Individual Psychotherapy - 30 min Attender: Orville gary [facility] 08/19/2019 03:30:00 AM EST - 08/19/2019 03:30:00 AM EST [facility] ([facility]) Attender: Orville Dey 08/19/2019 12:00:00 AM EST [facility] ([facility]) Outpatient Attender: STEFFANY NAM MD 08/09/2019 09:01:06 P [facility] Outpatient Attender: STEFFANY NAM MD 08/07/2019 04:29:02 P [facility] Outpatient Attender: STEFFANY NAM MD 07/31/2019 10:11:00 A [facility] Outpatient Attender: STEFFANY NAM MD 07/31/2019 09:40:02 A [facility] Outpatient Attender: STEFFANY NAM MD 07/30/2019 02:08:01 P [facility] Outpatient Attender: STEFFANY NAM MD 07/30/2019 02:07:01 P [facility] Outpatient Attender: LELA trinidad 07/30/2019 11:50:00 AM EST MEDENT ([facility]) Outpatient Attender: STEFFANY NAM MD 07/19/2019 09:33:12 A [facility] Outpatient Attender: STEFFANY NAM MD 07/19/2019 09:28:48 A [facility] Outpatient Attender: STEFFANY NAM MD 07/19/2019 09:23:54 A [facility] Outpatient Attender: KENDRA MURRAY MDReferrer: KENDRA MURRAY MD 07/10/2019 04:27:00 PM EST Arthropathic psoriasis, unspecified [facility] Arthropathic psoriasis, unspecified Outpatient Attender: Bright Dennis MDReferrer: STEFFANY Pate MD [id number] 07/10/2019 12:00:00 AM EST - 07/11/2019 12:00:00 AM EST Arthropathic psoriasis, unspecified [facility] Arthropathic psoriasis, unspecified Outpatient Attender: KENDRA MURRAY MDReferrer: KENDRA MURRAY MD 07/10/2019 12:00:00 AM EST Arthropathic psoriasis, unspecified [facility] Arthropathic psoriasis, unspecified Outpatient Attender: KENDRA MURRAY MDReferrer: KENDRA MURRAY MD 07/10/2019 12:00:00 AM EST Arthropathic psoriasis, unspecified [facility] Arthropathic psoriasis, unspecified Outpatient Attender: KENDRA MURRAY MDReferrer: KENDRA MURRAY MD 07/10/2019 12:00:00 AM EST Arthropathic psoriasis, unspecified [facility] Arthropathic psoriasis, unspecified Outpatient Attender: STEFFANY NAM MD 06/28/2019 01:06:[address] [facility] Immunizations Vaccine Date Status Description Data Source(s) Depo-Provera 150mg/1mL (Medroxy-Progestrone Acetate) 021 12:11:00 PM EST completed eCW1 ([facility]) Depo-Provera 150mg/1mL (Medroxy-Progestrone Acetate) 12:11:00 PM EST completed eCW1 ([facility]) New in 2011. IIV4 07/10/2019 12:00:00 AM EST completed In fluenza Quad IM Pres Free (0.5 mL dose) 07/10/2019 [facility] Medications Medication Brand Name Start Date Product Form Dose Route Admi nistrative Instructions Pharmacy Instructions Status Indications Reaction Description Data Source(s) 1 ML secukinumab 150 MG/ML Auto-Injector Secukinumab 150 MG/ML Subcutaneous Solution Auto-injector (COSENTYX) Secukinumab 150 MG/ML Subcutaneous Solut ion Auto-injector (COSENTYX) 07/01/2020 12:00:00 AM EST 150 mg Subcutan eous active Psoriatic arthritis Inject 150 mg into t he skin every 28 (twenty-eight) days [facility] Psoriatic arthritis 1 ML secukinumab 150 MG/ML Auto-Injector Secukinumab 150 MG/ML Subcutaneous Solution Auto-injector (COSENTYX) Secukinumab 150 MG/ML Subcutaneous Solut ion Auto-injector (COSENTYX) 06/03/2020 12:00:00 AM EST 150 mg Subcutan eous active Psoriatic arthritis Inject 150 mg into t he skin every 7 (seven) days for [address] [facility] Psoriatic arthritis gabapentin 100 MG Oral Capsule Gabapentin 100 MG Oral Capsule (NEURONTIN) Gabapentin 100 MG Oral Capsule (NEURONTIN) 04/30/2020 12:00:00 AM EST 100 mg Oral active Take 100 mg by mouth Three times daily [facility] buspirone hydrochloride 10 MG Oral Table t busPIRone HCl 10 MG Oral Tablet (BUSPAR) busPIRone HCl 10 MG Oral Tablet (BUSPAR) 04/30/2020 12:00:00 AM EST 10 mg Oral active Take 10 mg by mouth Two Times Daily [facility] Hydroxychloroquine Sulfate 200 MG Oral T ablet Hydroxychloroquine Sulfate 200 MG Oral Tablet (PLAQUENIL) Hydroxychloroquine Sulfate 200 MG Oral T ablet (PLAQUENIL) 04/30/2020 12:00:00 AM EST 200 mg Oral active Take 200 mg by mouth daily [facility] Fluticasone Propionate 50 MCG/ACT Nasal Suspension (FLONASE) 9328-8733-50 02/11/2020 12:00:00 AM EDT active USE 1 SPRAY(S) IN EACH NOSTRIL NEEDED [facility] Hydroxychloroquine Sulfate 200 MG Oral T ablet Hydroxychloroquine Sulfate 200 MG Oral Tablet (Plaquenil) Hydroxychloroquine Sulfate 200 MG Oral T ablet (Plaquenil) 12/04/2019 12:00:00 AM EDT 200 mg Oral a ctive Systemic lupus erythematosus, unspecified SLE type, unspecified organ involvement status Take 1 tablet by mouth daily [facility] Systemic lupus erythematosus, unspecifie d SLE type, unspecified organ involvement status Oseltamivir 75 MG Oral Capsule Oseltamivir Phosphate 07/30/2019 12:00:00 AM EST ORAL active MEDENT ( [facility], [facility]) Ondansetron 4 MG Oral Tablet Ondansetron HCL 07/30/2019 12:00:00 AM EST active MEDENT ([facility], [facility]) Ixekizumab 80 MG/ML Subcutaneous Solution Auto-injector 1923 30 07/11/2019 12:00:00 AM EST 80 mg Subcutaneous aborted Inject 80 mg into the skin every 28 (twenty-eight) days [facility] Ixekizumab 80 MG/ML Subcutaneous Solution Auto-injector (HARI TZ) [id number] 07/10/2019 12:00:00 AM EST 80 mg Subcutaneous active Psoriatic arthritis Inject 80 mg into the skin every 28 (twenty-eight) day s [facility] Psoriatic arthritis montelukast 10 MG Oral Tablet Montelukast Sodium 10 MG Oral Tablet (SINGULAIR) Montelukast Sodium 10 MG Oral Tablet (SINGULAIR) 06/22/2019 12:00:00 AM EST 10 mg Oral active Take 10 mg by mouth [facility] Escitalopram 10 MG Oral Tablet Escitalopram Oxalate 10 MG Oral Tablet (LEXAPRO) Escitalopram Oxalate 10 MG Oral Tablet (LEXAPRO) 06/22/2019 12:00:00 AM EST active TAKE 1&1 2 TAB LET BY MOUTH DAILY CAN INCREASE TO 2 TABS DAILY NEEDED FOR ANXIETY [facility] Insurance Providers Payer name Policy type / Coverage type Policy ID Covered democrat ID Covered democrat's relationship to moore Policy Moore Plan Information [facility] [id number] SP [id number] [id number] SP [id number] [facility] [id number] SP [id number] [facility] [id number] SP [id number] [facility] [id number] SP [id number] [facility] 86 [id number] WebflowATE emp [id number] Employee [id number] MVP I [id number] Self [id number] U [id number] Self [id number] P [id number] S [id number] Commercial [id number] Self [id number] Commercial [id number] Self [id number] Commercial [id number] Self [id number] SELF PAY ONLY SP [employer] P [id number] S [id number] [place] P[place] 302/[id number] [employer] P [id number] S [id number] [employer] Health Maintenance Organization (HMO) [id number] Family Dependent [id number] [employer]BS B [id number] P H [id number] BS [place] Commercial [id number] Family Depende nt [id number] Aetna PPO P [id number] S [id number] [place] [id number] [place]2 [id number] [place] [place] [id number] P [id number] Problems, Conditions, and Diagnoses Code Display Name Description Problem Type Effective Dates Data Source(s) N80.9 891322370 Endometriosis Problem 07/07/2020 12:00:00 AM EST eCW1 ([facility]) 606373921714419 Elevated total bilirubin Elevated total bilirubin 03/27/2020 10:47:[address] [facility] V65.8 Person consulting for explanation of exa mination or test findings Person consulting for explanation of examination or test findings 03/27/2020 10:47:[address] [facility] V05.9 Encounter for immunization Encounter for immunization 03/27/2020 10:47:[address] [facility] [id number] Pain in unspecified joint Pain in unspecified joint 03/27/2020 10:47:[address] [facility] V70.0 Encounter for general adult medical exam ination with abnormal findings Encounter for general adult medical examination with abnormal findings 03/27/2020 10:47:[address] [facility] Z68.20 Body mass index (BMI) 20.0-20.9, adult B kris mass index [BMI] 20.0-20.9, adult 03/27/2020 10:47:[address] [facility] 564.1 Mixed irritable bowel syndrome Mixed irritable bowel s yndrome 02/11/2020 04:26:[address] [facility] [id number] Systemic lupus erythematosus, unspecifie d Systemic lupus erythematosus, unspecified 02/11/2020 04:26:[address] [facility] 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 02/11/2020 04:26:[address] [facility] hydroxychloroquine [id number] Amenorrhea, unspecified Amenorrhea, unspecified 02/11/2020 04:26:[address] [facility] 477.0 Allergic rhinitis due to pollen Allergic rhinitis due to pollen 02/11/2020 04:26:[address] [facility] V15.06 Bee allergy status Bee allergy status 0 04:26:[address] [facility] [id number] Mild intermittent asthma, uncomplicated Mild intermittent asthma, uncomplicated 02/11/2020 04:26:[address] [facility] [id number] Current drug user Current Drug User Problem 02/10 12:00:00 AM EDT [facility] ([facility]) 263056350 Allergy to bee venom Allergy to Bee Venom Problem 02/11/2020 12:00:00 AM EDT [facility] ([facility]) 20910333 Systemic lupus erythematosus Systemic Lupus Erythemato jayna Problem 02/11/2020 12:00:00 AM EDT [facility] ([facility]) 87862303 Amenorrhea Amenorrhea Problem 02/11/2020 12:00:00 AM ED T [facility] ([facility]) 84739764 Irritable bowel syndrome Irritable Bowel Syndrome Prob margie 02/11/2020 12:00:00 AM EDT [facility] ([facility]) 09046264 Allergic rhinitis due to pollen Allergic Rhiniti s Due to Pollen Problem 02/11/2020 12:00:00 AM EDT [facility] ([facility]) F33.0 Major depressive disorder, recurrent, mi ld Major Depressive Disorder, Recurrent episode, Mild Condition 12/25/2019 12:00:00 AM EDT [facility] ([facility]) Z71.9 Counseling, unspecified Counseling, unspecified Diagno sis 06/03/2020 12:13:[address] [facility] Z79.899 Other penitentiary (current) drug therapy O ther penitentiary (current) drug therapy Diagnosis 06/03/2020 12:13:14 PM [facility] L40.50 Arthropathic psoriasis, unspecified Arthropathic psoriasis, unspecified Diagnosis 06/03/2020 12:13:[address] [facility] Z23 Encounter for immunization Encounter for immunization Diagnosis 07/10/2019 02:57:[address] [facility] R76.8 Other specified abnormal immunological f indings in serum Other specified abnormal immunological findings in serum Diagnosis 07/10/2019 02:57:[address] [facility] Surgeries/Procedures Procedure Description Date Indications Data Source(s) Injection, medroxyprogesterone acetate for contraceptive use , 150 mg 07/07/2020 12:00:00 AM EST eCW1 ([facility]) APPLICATION MODALITY 1/> AREAS HOT/COLD PACKS 05/14/20 20 12:00:00 AM EST MEDENT ([facility]) APPL MODALITY 1/> AREAS ELEC STIMJ EA 15 MIN 0 12:00:00 AM EST [facility] ([facility] THERAPEUTIC PX 1/> AREAS EACH 15 MIN EXERCISES 12:00:00 AM EST [facility] ([facility] ) MANUAL THERAPY TQS 1/> REGIONS EACH 15 MINUTES 12:00:00 AM EST [facility] ([facility] Physical Therapy Eval - Low Complexity 05/12/2020 12:0 0:00 AM EST [facility] ([facility] RADIOLOGIC EXAMINATION TIBIA & FIBULA 2 VIEWS 04/28/20 20 12:00:00 AM EST [facility] ([facility] RADEX ANKLE COMPLETE MINIMUM 3 VIEWS 04/28/2020 12:00: 00 AM EST MEDENT ([facility] ) [id number]"Psychotherapy 0 12:00:00 AM EDT - 12/25/2019 12:00:00 AM EDT [facility] ([facility]) [id number]"Psychotherapy 12/25/2019 12:00:00 AM EDT [facility] ([facility]) [id number]"Psychotherapy 0 12:00:00 AM EDT - 10/25/2019 12:00:00 AM EDT [facility] ([facility]) [id number]"Psychotherapy 10/25/2019 12:00:00 AM EDT [facility] ([facility]) [id number]"Psychotherapy 0 12:00:00 AM EDT - 10/11/2019 12:00:00 AM EDT [facility] ([facility]) [id number]"Psychotherapy 10/11/2019 12:00:00 AM EDT [facility] ([facility]) [id number]"Psychotherapy 0 12:00:00 AM EDT - 09/27/2019 12:00:00 AM EDT [facility] ([facility]) [id number]"Psychotherapy 09/27/2019 12:00:00 AM EDT [facility] ([facility]) Psychiatric Diagnostic Evaluation (Non-Medical) 09/04/2019 12:00:00 AM EDT - 09/04/2019 12:00:00 AM EDT [facility] ([facility]) Psychiatric Diagnostic Evaluation (Non-Medical) 2019 12:00:00 AM EDT [facility] ([facility]) Brief Individual Psychotherapy - 30 min 08/19/2019 12:00:00 AM EST - 08/19/2019 12:00:00 AM EST [facility] ([facility]) Brief Individual Psychotherapy - 30 min 08/19/2019 12: 00:00 AM EST [facility] ([facility]) RADIOLOGIC EXAM BOTH KNEES STANDING ANTEROPOST XR KNEE DOMENICA DING BOTH [id number] Routine 07/10/2019 4:48 PM EST Psoriatic arthritis 07/10/2019 09:48:00 PM EST Psoriatic arthrit is [facility] Psoriatic arthritis RADIOLOGIC EXAMINATION KNEE 1/2 VIEWS XR KNEE 1-2 VIEWS 73949 R outine 07/10/2019 4:48 PM EST Psoriatic arthritis 07/10/2019 09:48:00 PM EST Psoriatic arthrit is [facility] Psoriatic arthritis RADEX HAND MINIMUM 3 VIEWS XR HAND 3 OR MORE VIEWS 80515 Routin e 07/10/2019 4:48 PM EST Psoriatic arthritis 07/10/2019 09:48:00 PM EST Psoriatic arthrit is [facility] Psoriatic arthritis RADIOLOGIC EXAM SACROILIAC JOINTS 3/MORE VIEWS XR SACROILIA C JOINTS [id number] Routine 07/10/2019 4:48 PM EST Psoriatic arthritis 07/10/2019 09:48:00 PM EST Psoriatic arthrit is [facility] Psoriatic arthritis Results ID Date Data Source [id number] 08/14/2020 09:40:00 AM EST [facility] Name Value Range Interpretation Code Description Data Lily rce(s) Supporting Document(s) SARS coronavirus 2 RNA Not Detected [facility] This lab was ordered by [facility] and reported by [facility]. ID Date Data Source [id number] 06/03/2020 12:51:40 PM EST [facility] Name Value Range Interpretation Code Description Data Lily rce(s) Supporting Document(s) Progress Note [facility] AHTLOz9mEkQPCtHy31/YNZudEMPkz9YkDVisDDk8JUscGNSjZ3RtICO0lW9yOBT6UXjOHiMwBnFoBcC5 lbm [file] AgICAgICAgICAgICAgICAgICAgICAgICAgICAgICAgICAgICAgICAgICAgICAgICAgICAgICANCiAgIC AgICAgICAgICAgICAgICAgICAgICAgICAgICAgICAg ICAgICAgICAgICAgICAgICAgICAgICAgICAgICAgICAgICAgICAgICAgICAgICAgICAgICAgICAgICAg ICAgICANCiAgICAgICAgICAgICAgICAgICAgICAgICAgICAgICAgICAgICAgICAgICAgICAgICAgICAg ICAgICAgICAgICAgICAgICAgICAgICAgICAgICAgIC AgICAgICAgICAgICAgICANCiAgICAgICAgICAgICAgICAgICAgICAgICAgICAgICAgICAgICAgICAgIC AgICAgICAgICAgICAgICAgICAgICAgICAgICAgICAgICAgICAgICAgICAgICAgICAgICAgICAgICANCi AgICAgICAgICAgICAgICAgICAgICAgICAgICAgICAg ICAgICAgICAgICAgICAgICAgICAgICAgICAgICAgICAgICAgICAgICAgICAgICAgICAgICAgICAgICAg ICAgICAgICANCiAgICAgICAgICAgICAgICAgICAgICAgICAgICAgICAgICAgICAgICAgICAgICAgICAg ICAgICAgICAgICAgICAgICAgICAgICAgICAgICAgIC AgICAgICAgICAgICAgICAgICANCiAgICAgICAgICAgICAgICAgICAgICAgICAgICAgICAgICAgICAgIC AgICAgICAgICAgICAgICAgICAgICAgICAgICAgICAgICAgICAgICAgICAgICAgICAgICAgICAgICAgIC ANCiAgICAgICAgICAgICAgICAgICAgICAgICAgICAg ICAgICAgICAgICAgICAgICAgICAgICAgICAgICAgICAgICAgICAgICAgICAgICAgICAgICAgICAgICAg ICAgICAgICAgICANCiAgICAgICAgICAgICAgICAgICAgICAgICAgICAgICAgICAgICAgICAgICAgICAg ICAgICAgICAgICAgICAgICAgICAgICAgICAgICAgIC AgICAgICAgICAgICAgICAgICAgICANCiAgICAgICAgICAgICAgICAgICAgICAgICAgICAgICAgICAgIC AgICAgICAgICAgICAgICAgICAgICAgICAgICAgICAgICAgICAgICAgICAgICAgICAgICAgICAgICAgIC AgICANCjw/uRJhO3lrjPZgesD4I4aiLd4CIq2UOA3u r3YtYUFzASyclnTmSwlVVuKoFWZvFceFEgh8KPwzBC3LzZPgZ4ReF8PnGBdvKO2OYMHwJMMvxBTwKHEp QRDqZpZ9AEWjWLsrQR2GqSEmOIesPVXjERAfJU3ZPEXpS279wcSqTH0XRd9HDkFpNW5pra9HFqEqPMMt BvrWSbk1ESziXU6JjIAuqEPtXfDdQZFKZdTgH9erj2 MfYdDxYKGEOThwBW8Sw8ManDKfFGh+Gh5ZHC9oi9PkQJmhBvOuZL6myg5CAHdRAwYbC0QfiGqiJYYxb0 jrECNnOG9sxMNxNAO2GCyhOF2haD6pHqZJsGphJFVlEALjPXZzNA7wQPQxJICfUhTwSHXTPF8PIEKqFI XqhOIiFEQsRUVCCB6WZCuxTYB5OFLxhyEgsEDsEMom JF2OFXZiciNuMzOsNWAFNXn+Hc7ZEJ3te2EyLVfkAMOdQM9ssc3AFJqFRtIrP3M5rZBxG7M8MYozGi6F KYMaOYUxUxJbNXTWNQswTM4PPO1ysiO7EJ5NyCBgBGWyQBVvzCPoTDj3O86rnNPdOUujVP5EOVJ+Eliz+ Kf2ZYKQaSWMeDOVjAaHkZKSXRhIfC6QxO6JWz3RtR1 NvQR98vAfgftOgNMgdDK9SVU3aKRItVIBZFA4QoJHunG3vmkGdQdGrGCUZYkIqD90tjZVlZKLpAVLfBP KmZn9WNIHzH2RlypIqmNrlyeUiXRSeUNLAZQ9JTMdgzqQfvNSjfXhbVC88qKmhLX8ZWd5TRjCwNJ8znq 0UlASuEf9GKMMiJP3QLRTqLRVgLQXmBUT9NOMdYaTo GRndLQRbEJZhKKE9HYUlPOZzGQ0SRqQdAAFzYJpjBBZnREJmELJedj3ASLIsGWGfFEPzKRFiGESqQQAl RBacEJOrRWQxMMB3EQIyFSCcFH7QTwHuZPKyKNS9QNGcHGUiTGXwer8QMNXzFKZjIdKhOCEmUKQdWIHl MMheTULpDSSwCSczLDYfUWCfDV1DSdDwFHHvCNHnTy ydXMXnUGBgfm4AFZKzIISpBaG0WQExHUMsERTbAHqfDDEtEAD5OiF1SOLaYYYeJX8SHyXoWSBaHMG7OS ocDVWhYCAntp0OPYOhQEAdDLU6LiVcXBTiNHHyDRlrSNMcPBM9JFEwPZKxCCXjUL4QHzDyVAWhVBEtBm kyTZMuKYUofl8NTXFhZCLrYrU2XsXhGFIjQKWkDJdr OTNzPAV3MTZ7OCHbBWApED2ADsPxBYFjTGC7GsFiGAXtIZDumm1UCAZfNQDgCdisAbPpRUBiKBLwLRkf IVNjLQA5AMh3XIRxVTKwVV0RYwXeZWZuTJnwMGqpRSUdHMNolg1HKAFvLGPyKGM7NNJaMGChUABeWJbo BHWeYPQzKTLmNIVpMICkGD3GQfWoOCJaHyDqIQPrZH GbTWAbom5HDKHiXDMhCPIrZLNqOMVsFKJhQQb3woZoxREcLUh6TU0YN6RxqmBeXiDBSe8Hq756EFB5QX PrIx7IY4iqTc0oMLXoXZXNPu2AEDl8IdX5OMS4AWAmMzxsXUPyPUCiCjprCjErClPnWJNiEPZ+IDw3Nj ynOwwuGYEyGYIvELAhSRF1KpReY6HmBvJ5RIF2HP0l XSANCj4+APsjjEEgiOrfQMRWDqHxLNb9YXvaPUBGZh8D ID Date Data Source [id number] 06/03/2020 12:42:52 PM [facility] Name Value Range Interpretation Code Description Data Lily rce(s) Supporting Document(s) Progress Note [facility] OSCEDe5kHpRWVuRb27/QDEqjSYDfy6SlBIiyBGa7EOcgPEVuS2YeIJL3fS2iZIU2RGjXEuIvHkJaOcK0 lbm OjHsqFSlVrASQoCtmQOfBrNVlsCknjdRGfXU4FdIW9RGDiY67qEOQtUAXgV9CtTWIkHPj+Rf3RERQokO HnMG5UYwtH2B44t4vYSl+/QL/JEfNOS7ZW2ZCwPSHtEW3sAOMsR4PHnm+hOcg3uz3Sxca7skv+1PL4ON 0GaV886BBSAqaFxJHEltzRqn/sSqnsv1/OKTLdp4Qf h7zdd5qeg2x05i8E+Zqjd6+Lw2RJsHefOb1s+yD51bE//dBuaDs0hljTvtp3LY2JHRy05kOa+jada+tHJ xZTNvsxW9FN3Lp2ZTtN0sd3+Ac52E02YmM0nd/3+k1O4Ym6smovoVljB51u51JgJNhbWQgyx65wBl79G 1kHJMDW/ZJu155NT+49QGfWi3D96cQkGTzCEjtdA3w zAgA7exEOZscJaNgx0gFVInWMUVtjzmYgmjPnTCo5A4Gm3jCtcfXUoczT1xGA3wh4hCv1smZ8Kj7NpmF tUC8D06NpcZou+autOjOvKjO2X73efqSL6jZVh7ov0KViRDqfn8pt1c9Hbt9JyQ6khA9kWS3h0xmQuD3 vbBH32qjojLfbdhSL9epcpF4SILPhi+wk3xVO3slpH C/YE++o2xfRjGPglYv1alw9FD4NZ8+tDjiQs0tvZlCpHGDEfsmjgbd/JPmh8oDDdnn7tnWkLkl93LFNP wJXrxpV458bX32BFVpclfX57Qp13tzvm4oRP+CG3KOvcjXVELsXh21huZDIYaMDG4koQnq+T42I2Co5W 6cNPoADSx0iEyTqHnvMjGC4hgNU0OJlZk77FsBZqHG iKs4E78tMknFvxc8Q9m0DljM7osFav+zHQNhPbK68nm4KaAKwiTPUdDVmNWRsyvzo750JZR71NlwzYu0 progressive care unit registered nurse+HB3DYr3f15HfGcscTmiehwdrAd+7mewcPp1E1uwaLK/JM7ZK9B2mIF61+ZszMhr4Tc57AF5OSeU4N [file] SEGlGQHhJYB8Ju2sQQNYOy8+UWwfvTMboPvlOZKFOxX0Mmd7TDmoMXWNWz9M ID Date Data Source [id number] 03/27/2020 10:09:[address] [facility] Measurements & CalculationsHeight: 67 inches (5 ft. 7 in.) 170.18 cm Weight: 128.2 pounds 58.27 kg Body Mass Index (BMI): 20.15BMI Interpretation: Healthy WeightBody Surface Area (BSA): 1.68Weight Management Education Done (Nutrition/Physical Activity)Vital SignsTemperature: 99.5F 37.50C tympanic Pulse Rate: 77 beats/minuteRespiratory Rate: 18 respirations/minuteBlood Pressure: 125/81 right arm sitting automaticO2 Saturation: 100% Vital Signs performed by: Estefany Davis LPN, March 27, 2020 10:10 AMInitial Intake Information From: patientRoom #: 2Infectious Disease / Travel ScreeningRecent travel for you or any close contacts? NoHave you had any close contact with anyone diagnosed with or under investigation for COVID-19 (coronavirus)? NoFever? NoRespiratory symptoms: cough, cold, congestion, shortness of breath, difficulty breathing? NoLoss of smell? NoLoss of taste? NoSmoking, Tobacco, Vaping or Smoke Exposure StatusSmoke Status: former smokerTobacco Use: NoDo you vape? NoPassive Smoke Exposure: NoMenstrual HistoryAny possibility of ? NoComments: depoHealthcare HistorySince your last office visit...Have you been admitted to the hospital? NoHave you been to an emergency room (ER) or urgent care clinic? No - PneumoniaEmergency room (ER) or urgent care date reported today: 08/02/2018Have you seen another healthcare provider? Yes - rheumotology, cardioHave you seen a dentist? Yes - long fallsDental exam date reported today: 2014Intake performed by: Estefany Davis LPN, March 27, 2020 10:11 AMRate Your HealthIn general, would you say your health is? FairPain AssessmentAre you currently having any pain which... You would like your provider to address? No Affects your activity level? NoDepression Screening - PHQ-2Over the last two weeks, have you... Had little interest or pleasure in doing things? Not at all Been feeling down, depressed, or hopeless? Not at all PHQ-2 Score: 0Anxiety Screening - ORIANA- 2Over the last two weeks, have you been... Feeling nervous, anxious, or on edge? Several days Unable to stop or control worrying? Several days ORIANA-2 Score: 2Food InsecurityWithin the past year...Did you worry whether your food would run out before you got money to buy more? Never trueWas there a time when the food you bought didn't last and you didn't have money to get more? Never trueGeneralized Anxiety Disorder 7-Item Screening (ORIANA-7)Answer Guide:0 = Not at all1 = Several days2 = Over half the days3 = Nearly every dayOver the last 2 weeks, how often have you been bothered by the following problems?Feeling nervous, anxious, or on edge: 1Not being able to stop or control worryinWorrying too much about different things: 1Trouble relaxinBeing so restless that it's hard to sit still: 1Becoming easily annoyed or irritable: 1Feeling afraid as if something awful might happen: 1Answer Guide:0 = Not difficult at all1 = Somewhat difficult2 = Very difficult3 = Extremely difficultHow difficult have these made it for you to do your work, take care of things at home, or get along with other people? 1GAD-7 Screening Results ORIANA-2 Score: 2GAD-7 Score: 7Functional Impairment: Somewhat difficultRecommendation: Mild anxietyScreening, Brief Intervention, & Referral to Treatment (SBIRT)Pre-Screening Questions How many times have you have 4 or more drinks in a day? 0How many times have you used an illegal drug or used a prescription medication for a non-medical reason? 0Performed by: Estefany Davis LPN, March 27, 2020 10:12 AMPatient History Medical History:psoriasis SLEprevious heart murmurprevious asthma10/17/17 Immune system problemspalpitations managed by propranololIBS mixedSurgical History:tonsillectomy 2014Family History:graves disease - mother, maternal grandmother, maternal grandfatherGrandmother had a heart attack at 38.Hypertension (Mother)Hypertension (Father)Social/Personal History: Chief Complaintfollow-up visitHistory of Present Illness (HPI)29 yo female presents for annual physical and lab review. Pt would like flu vaccine today.Follows with [facility], next appt this month. Pt reports increased diffuse joint pain since cooler weather. Reports Plaquenil has helped with stiffness but not the pain, admits to vomiting at times with Plaquenil, admits to nearly constant nausea. Takes aleve twice daily with minimal relief. Pt previously was taking Tramadol for severe pain, [place]. Has tried CBD supplement at bedtime with melatonin, improved her insomnia. Sees ophthalmology in the near future, has to call them to schedule, they left a VM yesterday. HPI performed by: Ori WOODY, March 27, 2020 10:25 AMTransitions of Care InboundProblem ReviewProblem List was reviewed and/or updated during this visit.Medication Reconciliation & ReviewMedication List was reviewed and/or updated during this visit, including review of any kesn-eis-wrkevri medications, herbal therapies, and/or supplements.Allergy ReviewAllergy List was reviewed and/or updated during this visit.Adult Questionnaire1) Does the patient have a long-term health problem with heart disease, lung disease, asthma, kidney disease, metabolic disease (e.g., diabetes), anemia, or other blood disorder? No2) Does the patient have allergies to medications, food, a vaccine component, or latex? No3) Does the patient have cancer, leukemia, AIDS, or any other immune system problem? No4) Does the patient live with or expect to have close contact with a person whose immune system is severely compromised and who must be in protective isolation (e.g., an isolation room of a bone marrow transplant unit)? No5) Does the patient take cortisone, prednisone, other steroids, or anticancer drugs, or has the patient had radiation treatments? No6) During the past year, has the patient received a transfusion of blood or blood products, or been given immune (gamma) globulin or an antiviral drug? No7) For women: Is the patient or is there a chance she could become during the next month? No8) Has the patient ever had a serious reaction to a vaccine in the past? No9) Has the patient had a seizure or a brain or other nervous system problem? No10) Has the patient received any vaccinations in the past 4 weeks? No11) Is the patient older than age 49 years? No12) Is the patient sick today? No13) Vaccine information given and explained to patient? YesVaccines Administered/Entered:Vaccination Group: InfluenzaSeries: 2Vaccination: Flulaval Quadrivalent Intramuscular Suspension Prefilled Syringe 0.5 MLMfr / Lot# / Exp.Date: Match / [id number] / 1Amt. Given / Route / Site: 0.5 mL / IM / Left DeltoidNDC / CVX: [id number] / 150Administered Date: 03/27/2020 11:07VFC Eligibility: Not VFC EligibleVIS Date: 02/07/2019VIS Given / VIS Given On: Yes / 03/27/2020Comments: Administered by: Estefany Davis LPN Adult Preventive CareLabs/Meds/Other Counseling-Nutrition and Physical Activity:BMI Interpretation: Healthy Weight (03/27/2020) Counseling: Done (03/27/2020) Physical Activity: Done (03/27/2020)Review of Systems General: Denies chills, dizziness, fatigue, fever, headache, feeling ill. Eyes: Denies blurring of vision, double vision. Ears/Nose/Throat: Denies earache, nasal congestion, sore throat, tooth pain, swollen glands. Cardiovascular: Denies chest pain, palpitations, feeling faint, peripheral edema, elevated blood pressure. Respiratory: Denies cough, difficulty breathing, shortness of breath, wheezing. Gastrointestinal: Complains of see HPI, nausea, vomiting. Denies diarrhea, constipation, pain or discomfort, blood in stool, black or tarry stools. Genitourinary: Denies pain with urination, burning with urination, blood in urine, pelvic pain. Musculoskeletal: Complains of see HPI, back pain, joint pain, joint swelling, stiffness. Denies recent injury. Skin: Denies rash, redness, suspicious lesions. Neurologic: Denies numbness/tingling, seizures, feeling faint. Psychiatric: Denies see HPI, depression, anxiety, feeling stressed. Physical ExamGeneral Appearance: well nourished, well hydrated, no acute distressEyes, External: conjunctivae and lids normal, EOMIExternal Ears: normal, no lesions or deformitiesHearing: grossly intactOtoscopy: canals clear, tympanic membranes intact, no fluid, light reflex intact bilaterallyExternal Nose: normal, no lesions or deformitiesNasal: mucosa, septum, and turbinates normal, nares patentLips/Teeth/Gums: normal dentition, no gingival inflammation, no labial lesionsPharynx: tongue normal, posterior pharynx without erythema or exudate, no thrush/aphthous ulcerNeck: supple, no masses, trachea midline, full range of motion of neckThyroid: no nodules, masses, tenderness, or enlargementRespiratory, Auscultation: clear to auscultation bilaterally; no rales, rhonchi, or wheezesCardiovascular, Auscultation: S1, S2 audible; no murmur, rub, or gallop; RRRPeripheral Circulation: no clubbing, cyanosis, edema, or varicositiesAbdomen: soft, non-tender, no masses, bowel sounds normalGait & Station: normalSkin, Inspection: no rashes, lesions, or ulcerationsOrientation: oriented to time, place, and personMood & Affect: no depression, anxiety, or agitationJudgment & Insight: intactCare Management Plan Medication Adherence & Education Information on new prescriptions provided to patient/family/caregiver.Transitions of CareInboundRate Your HealthIn general, would you say your health is? FairAssessment & Plan Problems:Added: Encounter for general adult medical examination with abnormal findings (ICD-V70.0) (ICD10- Z00.01) Assessment: Instructions: Recommend annual medical appointments. Recommend routine dental and vision care. Recommend influenza vaccines annually and tetanus boosters every 10 years.Encounter for immunization (ICD-V05.9) (CXY31-L02) Assessment: Instructions: Flu vaccine today.Pain in unspecified joint (EGV10-G37.50) Assessment: Instructions: As above. Consider low dose short supply of Tramadol if no relief from Gabapentin over the next few weeks.Person consulting for explanation of examination or test findings (ICD- V65.8) (URV17-X60.2) Assessment: Instructions: Labs reviewed in detail today.Elevated total bilirubin (FKF09-A12) Assessment: Instructions: Likely from fasting status for labs, other liver function testing was normal. Given lab slip to have drawn nonfasting with likely future rheumatology labs.Changed:From: Dx of BMI < 20 (ICD-V85.0) (CED02-W92.1) To: Body mass index [BMI] 20.0-20.9, adult (ICD-V85.1) (XCB42-X74.20)Assessed:Systemic lupus e rythematosus, unspecified (VRW29-G59.9) Assessment: Instructions: Continue per rheumatology. Please discuss ongoing joint pain with them. Trial of gabapentin low dose to start with, educated on slow titration.Other pen[facility] (current) drug therapy (ICD-V58.69) (YPT76-Q84.899): hydroxychloroquine Assessment: Instructions: Pending ophthalmology due to Plaquenil.Insomnia (ICD-780.52) (MMK22-A38.00) Assessment: Instructions: Stable with CBD/melatonin as needed.Body mass index [BMI] 20.0-20.9, adult (ICD-V85.1) (VQV00-F81.20) Assessment: Instructions: Healthy weight for height.Mixed irritable bowel syndrome (ICD-564.1) (JQC44-R21.2) Assessment: Instructions: Zofran up to 8mg as needed for single dose, no less than 8 hrs between 8mg doses.Anxiety disorder, unspecified (UQM05-V68.9) Assessment: Instructions: Stable with current medications.Patient Instructions/Care Plan: Encounter for general adult medical examination with abnormal findings: Recommend annual medical appointments. Recommend routine dental and vision care. Recommend influenza vaccines annually and tetanus boosters every 10 years.Encounter for immunization: Flu vaccine today.Systemic lupus erythematosu s- unspecified: Continue per rheumatology. Please discuss ongoing joint pain with them. Trial of gabapentin low dose to start with, educated on slow titration.Pain in unspecified joint: As above. 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 Given lab slip to have drawn nonfasting with likely future rheumatology labs.Mixed irritable bowel syndrome: Zofran up to 8mg as needed for single dose, no less than 8 hrs between 8mg doses.Anxiety disorder- unspecified: Stable with current medications. Plan developed in collaboration with patient and/or famil yMedications:GABAPENTIN 100 MG ORAL CAPSULEDEPO-PROVERA 150 MG/ML INTRAMUSCULAR SUSPENSIONBISOPROLOL FUMARATE 5 MG ORAL TABLETBUSPIRONE HCL 10 MG ORAL TABLETONDANSETRON 4 MG ORAL TABLET DISINTEGRATINGPROPRANOLOL HCL 10 MG ORAL TABLETHYDROXYCHLOROQUINE SULFATE 200 MG ORAL TABLETLEXAPRO 20 MG ORAL TABLETEPIPEN 2-BRENDEN 0.3 MG/0.3ML INJECTION SOLUTION AUTO-INJECTORFLONASE ALLERGY RELIEF 50 MCG/ACT NASAL SUSPENSIONVENTOLIN HFA 108 (90 BASE) MCG/ACT INHALATION AEROSOL SOLUTIONMedication Changes:New Prescription:GABAPENTIN 100 MG ORAL CAPSULE-take 1 capsule po TID Qty: 90[Capsule] Refills: 1 Method: Electr onicAllergies:* BEE STINGS (Critical)* CODEINE (Severe)* NOVICAINE (Severe)* SULFA ANTIBIOTICS (Severe)Information on new prescriptions provided to patient.Orders:BILIRUBIN DIRECT [CPT-73702] BILIRUBIN TOTAL [CPT-59518] Preventive, Est, (18-39) [CPT-47036] FluLaval Quadrivalent, preservative free [CPT-65749] Follow-Up Return to clinic: in 1 year for preventive care visitAdditional Follow-Up: annual PEClinical Visit Summary CompletedMedications:GABAPENTIN 100 MG ORAL CAPSULE (GABAPENTIN) take 1 capsule po TID #90[Capsule] x 1 Route:ORAL Entered and Authorized by: Ori WOODY Method used: Electronically to [id number]* (retail) [address] [place] [address] Note to Pharmacy: Route: ORAL; Indications: PAIN IN UNSPECIFIED JOINT;SYSTEMIC LUPUS ERYTHEMATOSUS, UNSPECIFIED RxID: [id number] signed by Ori WOODY on 03/27/2020 at 11:09 AM Name Value Range Interpretation Code Description Data Lily rce(s) Supporting Document(s) ID Date Data Source [id number] 03/13/2020 02:04:[address] [facility] In-House Blood TestsDate/Time Colle cted: 03/13/2020Test Result Reference Range Normal ValueComments[facility] April 09, 2020 2:04 PMAssessment & Plan Orders:[id number] Vst-Est Level I [CPT- 95074] 16683 - Venipuncture [CPT-88044] Name Value Range Interpretation Code Description Data Lily rce(s) Supporting Document(s) ID Date Data Source [id number] 03/13/2020 10:00:[address] [facility] Name Value Range Interpretation Code Description Data Lily rce(s) Supporting Document(s) HCT 39.9 % 36.0-47.[address] [facility] HGB 13.0 g/dL 12.0-15.[address] [facility] MCH 32.6 G/DL pg 32.0-36.5 N [facility] MCHC 31.1 PG % 27.0-33.[address] [facility] PLATELETS 252 10 10*3/mm3 150-[address] [facility] RBC 4.18 10 10*6/mm3 4.00-5.40 [facility] RDW 12.6 % 11.5-14.5 [facility] WBC TOTAL 5.3 4.0-10.0 [facility] ID Date Data Source [id number] 03/13/2020 10:00:[address] [facility] Name Value Range Interpretation Code Description Data Lily rce(s) Supporting Document(s) VIT D25 TOT 46.4 ng/mL 30.0-100.0 N [facility] BG FASTING 93 mg/dL 70-100 N [facility] T4, FREE 1.09 ng/dL 0.76-1.46 [facility] TSH 1.010 microintl units/mL 0.358-3.740 [facility] ID Date Data Source [id number] 02/11/2020 03:37:[address] [facility] Measurements & CalculationsHeight: 67 inches (5 ft. 7 in.) 170.18 cm Weight: 126 pounds 4 oz. 57.39 kg Body Mass Index (BMI): 19.85BMI Interpretation: Healthy WeightBody Surface Area (BSA): 1.66Weight Management Education Done (Nutrition/Physical Activity)Vital SignsTemperature: 98.5F 36.94C tympanic Pulse Rate: 80 beats/minuteRespiratory Rate: 18 respirations/minuteBlood Pressure: 111/75 right arm sitting automaticO2 Saturation: 100% Vital Signs performed by: Estefany Davis LPN, February 11, 2020 3:37 PMInitial Intake Information From: patientRoom #: 2Infectious Disease / Travel ScreeningRecent travel for you or any close contacts? NoHave you had any close contact with anyone diagnosed with or under investigation for COVID-19 (coronavirus)? NoFever? NoRespiratory symptoms: cough, cold, congestion, shortness of breath, difficulty breathing? NoLoss of smell? NoLoss of taste? N oSmoking, Tobacco, Vaping or Smoke Exposure StatusSmoke Status: former smokerTobacco Use: NoDo you vape? NoPassive Smoke Exposure: NoMenstrual HistoryComments: depoHealthcare HistorySince your last office visit...Have you been admitted to the hospital? NoHave you been to an emergency room (ER) or urgent care clinic? NoHave you seen another healthcare provider? Yes - rheumotology, cardioHave you seen a dentist? Yes - long fallsIntake performed by: Estefany Davis LPN, February 11, 2020 3:39 PMRate Your HealthIn general, would you say your health is? FairPain AssessmentAre you currently having any pain which... You would like your provider to address? Yes Affects your activity level? YesDepression Screening - PHQ-2Over the last two weeks, have you... Had little interest or pleasure in doing things? Not at all Been feeling down, depressed, or hopeless? Not at all PHQ-2 Score: 0Anxiety Screening - ORIANA-2Over the last two weeks, have you been... Feeling nervous, anxious, or on edge? Several days Unable to stop or control worrying? Several days ORIANA-2 Score: 2Food InsecurityWithin the past year...Did you worry whether your food would run out before you got money to buy more? NoWas there a time when the food you bought didn't last and you didn't have money to get more? NoGeneralized Anxiety Disorder 7-Item Screening (ORIANA-7)Answer Guide:0 = Not at all1 = Several days2 = Over half the days3 = Nearly every dayOver the last 2 weeks, how often have you been bothered by the following problems?Feeling nervous, anxious, or on edge: 1Not being able to stop or control worryinWorrying too much about different things: 1Trouble relaxinBeing so restless that it's hard to sit still: 1Becoming easily annoyed or irritable: 1Feeling afraid as if something awful might happen: 1Answer Guide:0 = Not difficult at all1 = Somewhat difficult2 = Very difficult3 = Extremely difficultHow difficult have these made it for you to do your work, take care of things at home, or get along with other people? 1GAD-7 Screening Results ORIANA-2 Score: 2GAD-7 Score: 7Functional Impairment: Somewhat difficultRecommendation: Mild anxietyPain AssessmentLocation: all jointsDuration: chronicFrequency: DailyScreening, Brief Intervention, & Referral to Treatment (SBIRT)Pre-Screening Questions How many times have you have 4 or more drinks in a day? 0How many times have you used an illegal drug or used a prescription medication for a non-medical reason? 0Performed by: Estefany Davis LPN, February 11, 2020 3:40 PMPatient History Medical History:psoriasis SLEprevious heart murmurprevious asthma10/17/17 Immune system problemspalpitations managed by propranololIBS mixedSurgical History:tonsillectomy 2014Family History:graves disease - mother, maternal grandmother, maternal grandfatherGrandmother had a heart attack at 38.Hypertension (Mother)Hypertension (Father)Social/Personal History: Chief Complaintfollow-up visitHistory of Present Illness (HPI)Pt is a 29 y/o female, presents for rheumatology follow-up.Pt follows with [facility], diagnosed with SLE and psoriasis (psoriatic arthritis ruled out). Currently taking hydroxychloroquine and needs ophtholmology referral for monitoring while taking medication. Transitions of Care InboundProblem ReviewProblem List was reviewed and/or updated during this visit.Medication Reconciliation & ReviewMedication List was reviewed and/or updated during this visit, including review of any zcsn-ybl-sifszng medications, herbal therapies, and/or supplements.Allergy ReviewAllergy List was reviewed and/or updated during this visit.Adult Preventive CareLabs/Meds/Other Counseling-Nutrition and Physical Activity:BMI Interpretation: Healthy Weight (02/11/2020) Counseling: Done (02/11/2020) Physical Activity: Done (02/11/2020)Review of Systems General: De nies loss of appetite, chills, dizziness, fever, headache, feeling ill. Eyes: Denies blurring of vision, double vision, vision loss, eye pain. Cardiovascular: Denies chest pain, palpitations, feeling faint, peripheral edema, elevated blood pressure. Respiratory: Denies cough, difficulty breathing, shortness of breath, wheezing. Gastrointestinal: Denies nausea, vomiting, pain or discomfort. IBS with intermittent diarrhea/constipation alternatingSkin: Denies rash, suspicious lesions. Neurologic: Denies weakness, numbness/tingling, feeling faint. Physical ExamGeneral Appearance: well nouris hed, well hydrated, no acute distressEyes, External: conjunctivae and lids normal, EOMIRespiratory, Auscultation: clear to auscultation bilaterally; no rales, rhonchi, or wheezesCardiovascular, Auscultation: S1, S2 audible; no murmur, rub, or gallop; RRRPeripheral Circulation: no clubbing, cyanosis, edema, or varicositiesAbdomen: soft, non-tender, no masses, bowel sounds normalGait & Station: normalOrientation: oriented to time, place, and personMood & Affect: mildly anxious appearingJudgment & Insight: intactCare Management Plan Transitions of CareInboundRate Your HealthIn general, would you say your health is? FairAssessment & Plan Problems:Added: Systemic lupus erythematosus, unspecified (BPF32-U81.9) Assessment: Instructions: Referral for eye exam while taking hydroxychloroquine. 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 Labs ordered to update.Allergic rhinitis due to pollen (ICD-477.0) (QNX89-S81.1) Assessment: Instructions: Refilled albuterol inhaler and flonase to use as needed.Mixed irritable bowel syndrome (ICD-564.1) (PRP16-W23.2) Assessment: Instructions: Stable. Call for any change in symptoms.Bee allergy status (ICD-V15.06) (BGE16-Q41.030) Assessment: Instructions: Epipen refilled. Keep updated and on hand at all times.Amenorrhea, unspecified (JZH12-E24.2) Assessment: Instructions: Negative test today.Changed:From: Dx of Unspecified asthma, uncomplicated (MIZ08-E89.909) To: Mild intermittent asthma, uncomplicated (VIK01-C34.20)Assessed:Palpitations (ICD-785.1) (COC55-Q18.2) Assessment: Instructions: Stable with Bisprolol and propranolol (for anxiety). Tolerating well without concern. No longer follows with cardiology.Mild intermittent asthma, uncomplicated (SLX81-A15.20) Assessment: Instructions: Albuterol as needed.Atrial septal defect (ICD-745.5) (QRX54-D86.1) Assessment: Instructions: As above.Psoriasis (ICD-696.1) (JPD09-R32.9) Assessment: Instructions: As above.Removed:Acute recurrent maxillary sinusitis (ICD10- J01.01), Dysuria (ICD-788.1) (XBS56-V04.0), Other psoriatic arthropathy (ICD10- L40.59), DENTAL CARIES EXTENDING INTO PULP (ICD-521.03) (JTU26-O97.63), DENTAL CARIES EXTENDING INTO PULP (ICD-521.03) (QWM30-T02.63), Tight chest (ICD-786.59) (EOT88-J82.89), Acute maxillary sinusitis, unspecified (AQE41-C38.00), Psoriatic arthritis (ICD-696.0) (ZJF05-G44.50), Graves' disease (ICD-242.00) (ICD10- E05.00)Patient Instructions/Care Plan: Systemic lupus erythematosus- unspecifie d: Referral for eye exam while taking hydroxychloroquine. Continue per rheumatology.Other intermodal owner operator truck driver (current) drug therapy: As above. Labs ordered to update.Allergic rhinitis due to pollen: Refilled albuterol inhaler and flonase to use as needed.Mixed irritable bowel syndrome: Stable. Call for any change in symptoms.Bee allergy status: Epipen refilled. Keep updated and on hand at all times.Amenorrhea- unspecified: Negative test today.Palpitations: Stable with Bisprolol and propranolol (for anxiety). Tolerating well without concern. No longer follows with cardiology.Mild intermittent asthma- uncomplicated: Albuterol as needed.Atrial septal defect: As above.Psoriasis: As above. Plan developed in collaboration with patient and/or familyMedications:DEPO-PROVERA 150 MG/ML INTRAMUSCULAR SUSPENSIONBISOPROLOL FUMARATE 5 MG ORAL TABLETBUSPIRONE HCL 10 MG ORAL TABLETONDANSETRON 4 MG ORAL TABLET DISINTEGRATINGPROPRANOLOL HCL 10 MG ORAL TABLETHYDROXYCHLOROQUINE SULFATE 200 MG ORAL TABLETLEXAPRO 20 MG ORAL TABLETEPIPEN 2-BRENDEN 0.3 MG/0.3ML INJECTION SOLUTION AUTO-INJECTORFLONASE ALLERGY RELIEF 50 MCG/ACT NASAL SUSPENSIONVENTOLIN HFA 108 (90 BASE) MCG/ACT INHALATION AEROSOL SOLUTIONMedication Changes:Added: HYDROXYCHLOROQUINE SULFATE 200 MG ORAL TABLET-one tablet by mouth dailyPROPRANOLOL HCL 10 MG ORAL TABLET-one tablet by mouth twice daily as neededONDANSETRON 4 MG ORAL TABLET DISINTEGRATING-one tablet by mouth every 4 hours as neededBUSPIRONE HCL 10 MG ORAL TABLET-one tablet by mouth twice dailyDEPO-PROVERA 150 MG/ML INTRAMUSCULAR SUSPENSIONRefilled:EPIPEN 2-BRENDEN 0.3 MG/0.3ML INJECTION SOLUTION [id number]-zyoi IM prn Qty: 1[Prefilled Pen Syrnge] Refills: 5 Method: ElectronicVENTOLIN HFA 108 (90 BASE) MCG/ACT INHALATION AEROSOL SOLUTION-2 puffs every 4 hours as needed. Qty: 1[Container] Refills: 5 Method: ElectronicFLONASE ALLERGY RELIEF 50 MCG/ACT NASAL SUSPENSION-1 spray in each nostril PRN Qty: 1[Container] Refills: 5 Method: ElectronicNew Prescription:BISOPROLOL FUMARATE 5 MG ORAL TABLET-Take 1 tablet po daily Qty: 90[Tablet] Refills: 1 Method: ElectronicRemoved:ZOLPIDEM TARTRATE 10 MG ORAL TABLET-1 po 1 hour prior to sleeping prn insomnia; MDD 1, MONTELUKAST SODIUM 10 MG ORAL TABLET-daily, EPINEPHRINE SOLUTION-PRN, BISOPROLOL FUMARATE 5 MG ORAL TABLET-take 1 tab po qdChanged:From: ORAL LEXAPRO 10 MG ORAL TABLET Qty: [phone] Refills: 60[Tablet] To: LEXAPRO 20 MG ORAL TABLET- Take 1 tablet po dailyFrom: INJECTION EPIPEN 2-BRENDEN 0.3 MG/0.3ML INJECTION SOLUTION AUTO-INJECTOR Qty: [phone] Refills: 1[Prefilled Pen Syrnge] To: EPIPEN 2-BRENDEN 0.3 MG/0.3ML INJECTION SOLUTION [id number]-mfbe IM prn Qty: 1[Prefilled Pen Syrnge] Refills: 5From: INHALATION VENTOLIN HFA 108 (90 BASE) MCG/ACT INHALATION AEROSOL SOLUTION Qty: [phone] Refills: 1[Container] To: VENTOLIN HFA 108 (90 BASE) MCG/ACT INHALATION AEROSOL SOLUTION-2 puffs every 4 hours as needed. Qty: 1[Container] Refills: 5From: NASAL ALLERGY RELIEF SUSPENSION Qty: [phone] Refills: 1[Container] To: FLONASE ALLERGY RELIEF 50 MCG/ACT NASAL SUSPENSION-1 spray in each nostril PRN Qty: 1[Container] Refills: 5Allergies:* BEE STINGS (Critical)* CODEINE (Severe)* NOVICAINE (Severe)* SULFA ANTIBIOTICS (Severe)Orders:HCG [CPT-25297] COMP METABOLIC PANEL [CPT-99591] CBC W/DIFF [CPT-29325] LIPID PANEL [CPT-92682] TSH [CPT-01853] T-4 free [CPT-96061] Vitamin D 250H Unspecified [CPT-62658] URINALYSIS [CPT-17118] Optometery/Opthamology [CPT-54600] Adult - Ofc Vst, EST, Level III [CPT-57291] Follow-Up Return to clinic: in 6 weeks for preventive care visitAdditional Follow-Up: annual PEClinical Visit Summary CompletedLabs In-House Urine TestsDate/Time Collected: February 11, 2020 4:25 PMDate/Time Received: February 11, 2020 4:25 PMTest Result Reference Range Normal Valu eUrine HCG: negative NegativeOri WOODY, February 11, 2020 4:25 PM Name Value Range Interpretation Code Description Data Lily rce(s) Supporting Document(s) ID Date Data Source [id number] 02/11/2020 03:37:41 PM EDT [facility] Name Value Range Interpretation Code Description Data Lily rce(s) Supporting Document(s) PREG TST URN negative [facility] ID Date Data Source [id number] 12/04/2019 11:45:28 AM EDT [facility] Name Value Range Interpretation Code Description Data Lily rce(s) Supporting Document(s) Progress Note [facility] DYVLEp4rVdBNGxYo16/RQVpnRCEoz2WqJEroKMx1DKgpWLEqB4HoSRS8qN2qAVM9XMvRNyFzDzXpTjYg lbm UrGisHRhRzKVSkYjkCZlGaIZunLtonmGRbXB6CmHM8RIZpO37vELHlFQBcS7OqKDO3CBG+Ao1ZNOFbxX KuOE9RYewCeSpju+tMOV9v2Q4kXlHucWHR4JA2pmhPaeUFhythXLN4eZXSL7FhRTWKb6+1vQZmsxmFsC JXU4r8z773b3omMH85N6zAV3mLqL/Sg1ESyG+Bn3+C 0VbOKjmrcpkj3GXsxSKEUkZwCmpdvgOknY2zZXgdLiJTRgu1M/Hgk9xz4IiMArNN3rdu4sFhFu8kSkkS +y+AC13ydfcnfSh+61fo/ZtvVivoAbi4lLlyVd/MMv7Hiwc64nyZ1fHLi4AhEFfZLaX9UFHKaoIsQE0t kTeejixh+YFW0bfHzkhFwdBPkOtQfOGyuHxCmxqZAP 3HikJL+GevTW4h08xItYpNEJ3wiozvpuJ+uMslDTU2RcoFUi+FccQNc9uSW895saOyOx6CI81lw6MGMU DntbzfrYpOKJRbqnjL/zOnmWQtNTvlk/oRwT1gE5j5l9PujMC2I4TZMVNZIrysE2mquTwE8y3omLcpTm oU9enxEaK3w7ZMOvgEFNMMskEfvKXqoN3EGwS42vvg 2UdYvhZhje4knXHWO3vlXgcmkw35yV+tKSNRBNdqxDhLDRYHybwxpOXt+mdhl1iteRaiIFils3CILBAJ ZTCnr7qvAbJLbCYRd33dgT1ZBT/aROrEc2gYhO1KUYQUBxW9H9ZiXz6DIWJTmn2InGsATAz1ZQODK1VW Aundrea/ZWZLxDzbqQH2pKZTiCQYrTPd5VAFvsrhDMLPKo [file] ID Date Data Source [id number] 12/04/2019 11:43:07 AM EDT [facility] Name Value Range Interpretation Code Description Data Lily rce(s) Supporting Document(s) Progress Note [facility] CQUJMv3zXiXHEhAe90/TEPzhCIXmd1VrYIvhVKc3ZUfdKHCtE6HoFKQ8cY6kKST2EDmHVqUrUnRlHpLn lbm [file] 2RxkWTlb+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/ZBidlaoF0fbEWIwnPnz5TO/nuD3O+Ex//C+w92/uCQuCbWIG6qdCxgE0QEW8ev5EsNQ [file] ICAgICAgICAgICAgICAgICAgICAgICAgICAgICAgIC MkGBFhRPOhBYUiARQhWNTgZSIcPNQcYTTtGEUeXCHlNUYlTS3DEWPvDXGvXSSqDGMjSYVbJGZkNMMaIW AgICAgICAgICAgICAgICAgICAgICAgICAgICAgICAgICAgICAgICAgICAgICAgICAgICAgICAgICAgIC KuJUCdEOTvZRAqQJYiAVSeIB0BKSSjUSFvZAPyUSAc ICAgICAgICAgICAgICAgICAgICAgICAgICAgICAgICAgICAgICAgICAgICAgICAgICAgICAgICAgICAg DVDeCHEyMJTfRKRqYIQrBMJnSTZzKRPiQZQhPV1IVVKlNZXtWQLdNIDiYVBiGFQvXTSfZKCrCRBoBXNb ICAgICAgICAgICAgICAgICAgICAgICAgICAgICAgIC KeADQvEMNnCHIpTEDeFMQtHZAjOSSzEILmIDOiJJMiVTFbHQWbCS6SPGZmEVZlSRJsWTChLULqUEHvTW AgICAgICAgICAgICAgICAgICAgICAgICAgICAgICAgICAgICAgICAgICAgICAgICAgICAgICAgICAgIC WxIPMeAPZgKMGsWODaBDPpRHGwSY8NFOKxGHNqTIPt ICAgICAgICAgICAgICAgICAgICAgICAgICAgICAgICAgICAgICAgICAgICAgICAgICAgICAgICAgICAg NAUfYLCeNQAzXYXsEAIaHZOzCTGaGBEjQEJyHWCeJW0EPICaNRCpGWVkBWLkMVLgOPBvPGLoAQFkLDSp ICAgICAgICAgICAgICAgICAgICAgICAgICAgICAgIC PzXZAqZKGlWEVrXCWbYLSvWAUnIOHpCWVmQGWcOOBuYRVdSWRmSHKiBI6FZQKpXSLjFNBsNTWmJGCzXH AgICAgICAgICAgICAgICAgICAgICAgICAgICAgICAgICAgICAgICAgICAgICAgICAgICAgICAgICAgIC XpHFFcMTAyMHYcJVXxDTEiJJMvBREcPH8OBHFvICVi ICAgICAgICAgICAgICAgICAgICAgICAgICAgICAgICAgICAgICAgICAgICAgICAgICAgICAgICAgICAg YJNcZGIqDKVqGWOzBFMyXBWiTWIzPEYmOJYfTLVwHNJdCS2UVAKbYOYrHHJfVOUmWMMxCIMfPGKcLOXb ICAgICAgICAgICAgICAgICAgICAgICAgICAgICAgIC GvTBZwKUCtWPEzLINkIKDtDXLgWRMhCPAhXSIkQXQvPSOjEMZpGIPwNEVdGY2WIB30dZYdu9S9ZPOhEC 0ndyc/Wp1DGNicfgBheXAgCA1WOeIjHO3fft2JRdMmLU0aiu4JQEoGWuSrR1Z8eQSuXSLbPIKZMfEcE4 7cBZlpNd37TFgzHNEeEvGzOMi9Sh4VAeOoW0yoKZTf EsQ1RMSxIpO2CCFyFhF2FGRsInFfFIVaYWEmKPLpFJPUHJ7ZLlYsX8BtwK55DLPLMw4+DQplbmRvYmoN BeW8RBEsc8TpTSp7XM1MPXUiIkmim1DgUxrwKJCKLSneUP0WFEV4INR5DJZkQy3BYBNoL671ggSfMH1X Da4NArKkLI6iyp3ZXdpqKZBkGkeSVhb6BUmiEK4UoA IsVRyAoz1zfwOledBPr5JtoqSvsDZPgHhcCMXIJH2kV3PhhllbGDYcYTTaAj4oAS0aVXBsPUGgMsHkFM PNKC3VKDPiCBCsgPQxJAWmZPBUMD1WRMloVYO2CDQihwWzzCKtHEclZF8LBTGhbmJvMtuhFJHVINu+Pg 3MQT0kv2SmCMmiQIAxWX6vcj5AMOdWYpDcO4Z1kGNd T2B6QWkeOn1TUGJaZQFgNdMhWUPSCVueKR9EDH3oglQ6OM8OnAXiLHAqNTScuAFfNAm1W46zjUPiXRyd QH5FJFK+Eliz+Yq9ITGTgKJKhNRNtJzAmQXIEErGyG6IbI6SKd3MuF7HkUM54gXidtzAvJHztJJ0UKE0p IGShJYJRFD4EdXZktX1efoBmVyWjXXHDVwPsG76uzE PsDVHgTMZ7WLHuKm5BXGFiR6ChtuGsmUsetfSnEOCbIFWRRA4IGQemmmBbwKVitWhpHO05sCqsUW5JWy 2CFvRgTE6wtn2YgCMbLw3XSPRhFJ1LVJRhVOTeANRyWKN0BTKdXrEqFWdfONTkEEIyMLV0XODjLPAfDI 4NUeYjKENcVyY6WGPeJQWlGXRmpv1ZLGObHBJaGmZ0 AHCsVDRcNQCqJBikKVYnAKIcGFY3CMNqCANiYY9OFeHoFJOqKSE6FYLzIQPrHSCowo5FDCQaFBSdPKHa WgZfOTFxDUBxCPubUKZyOKE2QDS0QABvOZPaSN7JZaTtADYgSBspHTBpQANeFQQqkd4LITQqMOTzGSo0 WOYpCXLrDSVsXQmsJEJwCVPcYCCsIOTiAVEbNN7UYt KnSHNjISL8ZZBbKRDpIKBbqy9YXIBpQAAdRpQ8SBDiDAQoSZTqPNppSSIsUQU6KVa2HXMhEQLhNK0FDf KnKYYkFEB8BLIaZNOuJESuzs8ATAIpUWQaHgc0CTKeKFFzDXWbYTacTZSoYVV8GND8TFTcIILyPM5UKj GwZKKaKVqdVeGiPVCaBIPzve3GYKGxCNFrTND2RSJl YSUbKLIvOXfdXTFfZYV1OnhlYPBhJPVqKB1EYcHbHFWmMSo0SsigELZoJGVrhy5THOHlCLFbOKw5QREl AVZvUUSfZWcbXWPoXGEiGkZ1NXTxGPSvBH7OEjKkRKTzRkS9BnHbXYVgUIHtzt2ADABzXWWwTIT5NrWp SRToVRAdDQbhENXnMXKcFEF6SJOjARJgGE4WRaUtRZ RqHqTpEcQiMAIlLMLbaf8FWVMxWLOhAnP5UNVwXOBsLUShHYwkQYToUVKyCgQ7SYOvIQFpGK9WHjWwXY XqNhI2MUPuACGrPEExha6NrJRrtEhxpf7NTHoRHc2KdEahSMYeZWdbUo6xwMNsSSKtVDWLWb9EkzCcXF ZlHWZPXRzkCLMlRZTeZLhzHpMsH7ZjEQYfPTWbIdPe DIiaSAS0YcA7IpT2DjM4MYTzEMA9DoYuUDS2N3YoFRLwI2MoQ1N8YIEmYSufZSe+XC4mXWm+Ew6Xm9Mx gpG3koGbJUvyHCK4BI0QBGNVK3QTTv== ID Date Data Source [id number] 12/02/2019 10:09:19 AM EDT [facility] Name Value Range Interpretation Code Description Data Lily rce(s) Supporting Document(s) Progress Note [facility] HKUXOy5tOjMDZuEg52/YKIfoBMZrc9IlFZwiFYn9GLmwXRGzS8QiMLI9cL2fERL0IWpPGbZrUkErTxL4 lbm [file] VAInPpW5XdG2KANpKiB2Nst7ZRf1ZWX2SRWsSjEf VP2CSn5YSmE3VRM5mQCjUh9OHUq1KrGOJdLbLE8FVIa= ID Date Data Source [id number] 07/10/2019 10:37:56 PM [facility] XR KNEE STANDING BOTH [id number] RESULTI nterpreted by:Guillermo Henry MDINDICATION: Knee pain.TECHNIQUE: AP standing views of the bilateral knees, merchant's views of the bilateral knees and lateral views of the bilateral knees were obtained.COMPARISON: None.FINDINGS/IMPRESSION:Right knee: No acute fracture or dislocation. Bony alignment appears anatomic. No significant effusion is appreciated. The soft tissues appear unremarkable.Left knee: No acute fracture or dislocation. Bony alignment appears anatomic. No significant knee joint effusion is appreciated. The soft tissues appear unremarkable.This document has been electronically signed by Guillermo Henry MD on 07/10/2019 9:45 PM Name Value Range Interpretation Code Description Data Lily rce(s) Supporting Document(s) ID Date Data Source [id number] 07/10/2019 10:37:56 PM [facility] XR SACROILIAC JOINTS [id number] RESULTIn terpreted by:Guillermo Henry MDINDICATION: Back pain and psoriatic arthritis.TECHNIQUE: Multiple views of the bilateral SI joints were obtained.COMPARISON: None.FINDINGS: No acute fracture or dislocation. No definite erosive change of bony ankylosis is seen. The soft tissues appear unremarkable.IMPRESSION:No convincing radiographic evidence of sacroiliitis.This document has been electronically signed by Guillermo Henry MD on 07/10/2019 9:43 PM Name Value Range Interpretation Code Description Data Lily rce(s) Supporting Document(s) ID Date Data Source [id number] 07/10/2019 10:37:56 PM [facility] XR KNEE 1-2 VIEWS [id number] RESULTInter preted by:Guillermo Henry MDINDICATION: Knee pain.TECHNIQUE: AP standing views of the bilateral knees, merchant's views of the bilateral knees and lateral views of the bilateral knees were obtained.COMPARISON: None.FINDINGS/IMPRESSION:Right knee: No acute fracture or dislocation. Bony alignment appears anatomic. No significant effusion is appreciated. The soft tissues appear unremarkable.Left knee: No acute fracture or dislocation. Bony alignment appears anatomic. No significant knee joint effusion is appreciated. The soft tissues appear unremarkable.This document has been electronically signed by Guillermo Henry MD on 07/10/2019 9:45 PM Name Value Range Interpretation Code Description Data Lily rce(s) Supporting Document(s) ID Date Data Source [id number] 07/10/2019 05:10:31 PM [facility] XR HAND 3 OR MORE VIEWS [id number] RESUL TInterpreted by:Guillermo Henry MDINDICATION: Bilateral hand pain, assess psoriatic arthritis, assess for erosions.TECHNIQUE: Multiple views of the bilateral hands were obtained.COMPARISON: None.FINDINGS/IMPRESSION:Right hand: No acute fracture or dislocation. No definite erosive changes are seen. Soft tissues appear unremarkable.Left hand: No acute fracture or dislocation. No definite erosive changes are seen. Soft tissues appear unremarkable.This document has been electronically signed by Guillermo Henry MD on 07/10/2019 5:08 PM Name Value Range Interpretation Code Description Data Lily rce(s) Supporting Document(s) ID Date Data Source [id number] 07/10/2019 05:06:28 PM [facility] Name Value Range Interpretation Code Description Data Lily rce(s) Supporting Document(s) Progress Note [facility] NHJZKp5dFrRGXxNk43/KMVwaDDXoq3TeUMbgKZb1FKdmJXDkW1HhLUF8jR1qSCP6NBsJKqFmHhMePEU0 lbm [file] PwY9QUG4uUVfZr7BKBwcPhWDEdAqEN0TUDv= ID Date Data Source [id number] 07/10/2019 05:00:25 PM [facility] Name Value Range Interpretation Code Description Data Lily rce(s) Supporting Document(s) Progress Note [facility] QLYZXw0lXmWMYpEt01/ENBzjAEUiw9GsVGhcDVy8QCwqHBAdA3CwJDN0fU6vQZW1WSrWNbVuJoFtYXW2 lbm [file] AgICAgICAgICAgICAgICAgICAgICAgICAgICAgICAg ICAgICAgICAgICAgICAgICAgICAgICAgICAgICAgICAgICAgICAgICAgICAgICAgICAgICAgICAgICAg DQogICAgICAgICAgICAgICAgICAgICAgICAgICAgICAgICAgICAgICAgICAgICAgICAgICAgICAgICAg ICAgICAgICAgICAgICAgICAgICAgICAgICAgICAgIC AgICAgICAgICAgDQogICAgICAgICAgICAgICAgICAgICAgICAgICAgICAgICAgICAgICAgICAgICAgIC AgICAgICAgICAgICAgICAgICAgICAgICAgICAgICAgICAgICAgICAgICAgICAgICAgICAgDQogICAgIC AgICAgICAgICAgICAgICAgICAgICAgICAgICAgICAg ICAgICAgICAgICAgICAgICAgICAgICAgICAgICAgICAgICAgICAgICAgICAgICAgICAgICAgICAgICAg ICAgDQogICAgICAgICAgICAgICAgICAgICAgICAgICAgICAgICAgICAgICAgICAgICAgICAgICAgICAg ICAgICAgICAgICAgICAgICAgICAgICAgICAgICAgIC AgICAgICAgICAgICAgDQogICAgICAgICAgICAgICAgICAgICAgICAgICAgICAgICAgICAgICAgICAgIC AgICAgICAgICAgICAgICAgICAgICAgICAgICAgICAgICAgICAgICAgICAgICAgICAgICAgICAgDQogIC AgICAgICAgICAgICAgICAgICAgICAgICAgICAgICAg ICAgICAgICAgICAgICAgICAgICAgICAgICAgICAgICAgICAgICAgICAgICAgICAgICAgICAgICAgICAg ICAgICAgDQogICAgICAgICAgICAgICAgICAgICAgICAgICAgICAgICAgICAgICAgICAgICAgICAgICAg ICAgICAgICAgICAgICAgICAgICAgICAgICAgICAgIC AgICAgICAgICAgICAgICAgDQogICAgICAgICAgICAgICAgICAgICAgICAgICAgICAgICAgICAgICAgIC AgICAgICAgICAgICAgICAgICAgICAgICAgICAgICAgICAgICAgICAgICAgICAgICAgICAgICAgICAgDQ ogICAgICAgICAgICAgICAgICAgICAgICAgICAgICAg ICAgICAgICAgICAgICAgICAgICAgICAgICAgICAgICAgICAgICAgICAgICAgICAgICAgICAgICAgICAg NXSdDSKhOCDrLUm0V6gzDJMcJYIsKW1tYQp7Nf5+WMhLGvDkPPP5pfJagB9ARK3gk4YfRUnyHDGvb6Am VBe6GE6EZMRaHAswKK3PEOgyym2CKWUpFLSzdRDKc5 euYpIcQTE9YFPwIwigID7XLOMyP0dptxJqZGSfBGVYLYytBWKHRErvUPDKULGtIWCiPwFgPxIfBDAfIZ PsHMQTSG1PGtSnK4WcrK36QXLLYp1+GCxdndTxAtcWIeA8TWIbb9VfIQe1AR6HTGVvCwjxo8LbKfFeBW DIJAknUM9QWJO5PQZqKXAnWr6HPQAcQ219nzNyTE2V Qk7WKwBvWB6eki9XFlLdVVSaMamJOzr2VJygPX1XdCUqUPfIam4arjGkxyFYw1NnqtGksKIPpXbnQEOB PZ9kZ8BroxrnRSAhTRHiOS5fVA9cHOCoPRWvWcCzVHMLND7PHIPxWFKnnQXgNQVtXEGYDG1PWHnaEXH2 TLGziaRfjIJrKQnyJC7LBOGosaGyTxaiTYTAPDo+Pg 1QJU9eo2DoLUqoKAQkVZ3gge8SJRgYHaJnH3S6zOGhD9G5RGogDb8HBFIwUNBtLzidFGIXMVzzRU0EHE 2lkeB0DN4QlPFuQMBkHCNvsBLkOEs1E54jbRJkNVskNZ1AXRE+Eliz+Sn7IKFXiQYScZGStZpUpNFTCQu OwH2AyG8OKi1NvL8YmXJ44gSdarhPqRWgpUE2ZKZ4q WCEmSYQXRY3KvGZyyU9eezFvWZZaKXRWBdPwX41waJTjRLRxGNY4QKBsSm2TCRBiB4DeufKolFxsrcYm QRVoIVPBOF9FHUpvaxJwfLHtwOivXP46dRqnBN3NAv7ESfKfHX7dte2GbAAtUl9UIABnIt2NLLDiZIAd AUAcMDY0HVWlAfRgRRpuQPBnDYCpVNR9UJKjIHAbZG 5YYwYfCYEjPbSzDrQuXEIoKIMexb6URCIqOBUwCAU0YMRaUFDpESCoAIhlDUKkLKAaUAG7CRXsRPYzKI 5OQqErPOIeSRE4GmqcFZOoXBMfzb6IIGRkGPZmABZdOkCcTSYoBLOsFFdjHVKhZYT7SzOlCQYqYBVlJG 0SYtZmNQZmMGN5MLdoFDIhNHCelb0TWCKuOTSmNIE3 FPHfPZYnBHQvRVvaCMMtHXQ6LrViTBSnIWTpJJ5VMnKfUAPdAXR9SwRuOOYyZMXgrz8SQTGhONNgTwji LeWaMHQsNTXyCQvdMEHiDJA8ZQe4ACTtUNSqPZ1CCpPfTBQlWJG7BSYwEBXnTRPths2ITPErSAZyCnG9 WjDbFJFrELNeFNjxLEVtVXH2MtO0GEWlZRVmWV0VHp SrVQJwIAcqZHyqFGCeBFEetv4AVJEyKJJeJJObKkJaACTeNDOzWUbsUMHtOXE3PUg3BWNoCTCmDW4MYl DwWHBeRQk5AMfqOYQyVJXcou2IYRArVFRpZTt1SKAuAANwOIVpAGuhJVFvYWC4LZY6HTUqDFPfTM3YBu HeUEPhAqDwZbuxTJOeJGQpuy3DUFQeKSIxALckSrWe AHAqXJEwZBsyUDNsKPLuXIEfWBHpNGDhFD8MUpGsTNXoIlSwRlOxYXTqVSDmln0YPFOtRUSeWmMeLXEv BLAdOJDlSKvgORUdYLUiJzV0IWMbKHDnHH9ALlYnTDMjRgNdMWOmFNUsTTMfwb3EDVRjYMWtGIY3SPIx URHaDHGsAYolIALjCDI2LFFzAACwGWGnNY2HKmQcPQ spFFERCji2MOyqK8w3IFVeDj1CJ2Dwm4UvBsVqFYUPSMrbSH9ycoMqDQYvPs3QH0eUFsjbMGYaPQDaKB RlHwgdHENjTCZ6UYJaXVo0EIFlFTL2Pc5gWCGfM0G3CpMbX4A8E5AgJFEwRMW8ToP2MYMmAVB9WcEzUx PyUF7ACv1XQqK2CRW3eTNnDb4VOmE7ENLDShHvXG4ITAy= ID Date Data Source [id number] 07/10/2019 05:29:48 PM [facility] NegativeNo interferon-gamma response to M.tuberculosisantigens was detected. Infection withM. tuberculosis is unlikely. A single negativeresult does not exclude infection with M. TB.In patients at high risk for M. tuberculosisinfection, a 2nd test should be consideredin accordance with [id number] ATS/IDSA/CDC Clinical Practice Guidelinesfor Diagnosis of Tuberculosis in Adults andChildren [Regina WRIGHT et. al. Clin Infec.Inb7209 64(2):111-115] Name Value Range Interpretation Code Description Data Lily rce(s) Supporting Document(s) Leukocytes [#/volume] in Blood by Automated count 7.0 10*3/uL 4-10 [facility] Erythrocytes [#/volume] in Blood by Automated count 4.53 10*6/uL 4.1- 5.3 [facility] Hemoglobin [Mass/volume] in Blood 13.9 g/dL 11.5-15.5 [facility] Hematocrit [Volume Fraction] of Blood by Automated count 41.6 % 3 6-45 [facility] Erythrocyte mean corpuscular volume [Entitic volume] by Auto mated count 91.9 fL 80-96 [facility] Erythrocyte mean corpuscular hemoglobin [Entitic mass] by Automated count 30.7 pg 27-33 [facility] Erythrocyte mean corpuscular hemoglobin concentration [Mass/volume] by Automated count 33.4 g/dL 32.0-[facility] distribution width [Ratio] by Automated count 13.4 % 11.5-14.5 [facility] Platelets [#/volume] in Blood by Automated count 269 10*3/uL 150-400 [facility] Differential cell count method - Blood [facility] Neutrophils/100 leukocytes in Blood by Automated count 69 % [facility] Lymphocytes/100 leukocytes in Blood by Automated count 21 % [facility] Monocytes/100 leukocytes in Blood by Automated count 7 % [facility] Eosinophils/100 leukocytes in Blood by Automated count 2 % [facility] Basophils/100 leukocytes in Blood by Automated count 1 % [facility] Neutrophils [#/volume] in Blood by Automated count 4.93 10*3/uL 1.8-[address] [facility] Lymphocytes [#/volume] in Blood by Automated count 1.48 10*3/uL 1.2-[address] [facility] Monocytes [#/volume] in Blood by Automated count 0.46 10*3/uL 0-0.8 [facility] Eosinophils [#/volume] in Blood by Automated count 0.13 10*3/uL 0-0.5 [facility] Basophils [#/volume] in Blood by Automated count 0.04 10*3/uL 0-0.2 [facility] Nucleated erythrocytes/100 leukocytes [Ratio] in Blood by Automated count 0 /100{WBCs} 0-0 [facility] ID Date Data Source [id number] 07/10/2019 05:50:33 PM [facility] NegativeNo interferon-gamma response to M.tuberculosisantigens was detected. Infection withM. tuberculosis is unlikely. A single negativeresult does not exclude infection with M. TB.In patients at high risk for M. tuberculosisinfection, a 2nd test should be consideredin accordance with [id number] ATS/IDSA/CDC Clinical Practice Guidelinesfor Diagnosis of Tuberculosis in Adults andChildren [Lewinsohn DM et. al. Clin Infec.Jcq9232 64(2):111-115] Name Value Range Interpretation Code Description Data Lily rce(s) Supporting Document(s) Erythrocyte sedimentation rate 26 mm/hr <[address] [facility] ID Date Data Source [id number] 07/10/2019 06:09:56 PM [facility] NegativeNo interferon-gamma response to M.tuberculosisantigens was detected. Infection withM. tuberculosis is unlikely. A single negativeresult does not exclude infection with M. TB.In patients at high risk for M. tuberculosisinfection, a 2nd test should be consideredin accordance with [id number] ATS/IDSA/CDC Clinical Practice Guidelinesfor Diagnosis of Tuberculosis in Adults andChildren [Regina WRIGHT et. al. Clin Infec.Sfr0172 64(2):111-115] Name Value Range Interpretation Code Description Data Lily rce(s) Supporting Document(s) Complement C3 [Mass/volume] in Serum or Plasma 117 mg/dL 90-180 [facility] ID Date Data Source [id number] 07/10/2019 06:09:56 PM [facility] NegativeNo interferon-gamma response to M.tuberculosisantigens was detected. Infection withM. tuberculosis is unlikely. A single negativeresult does not exclude infection with M. TB.In patients at high risk for M. tuberculosisinfection, a 2nd test should be consideredin accordance with [id number] ATS/IDSA/CDC Clinical Practice Guidelinesfor Diagnosis of Tuberculosis in Adults andChildren [Regina WRIGHT et. al. Clin Infec.Vpv1011 64(2):111-115] Name Value Range Interpretation Code Description Data Lily rce(s) Supporting Document(s) Complement C4 [Mass/volume] in Serum or Plasma 32 mg/dL 10-40 [facility] ID Date Data Source [id number] 07/10/2019 06:09:56 PM [facility] NegativeNo interferon-gamma response to M.tuberculosisantigens was detected. Infection withM. tuberculosis is unlikely. A single negativeresult does not exclude infection with M. TB.In patients at high risk for M. tuberculosisinfection, a 2nd test should be consideredin accordance with [id number] ATS/IDSA/CDC Clinical Practice Guidelinesfor Diagnosis of Tuberculosis in Adults andChildren [Regina WRIGHT et. al. Clin Infec.Vtm0953 64(2):111-115] Name Value Range Interpretation Code Description Data Lily rce(s) Supporting Document(s) C reactive protein [Mass/volume] in Serum or Plasma 0.9 mg/L <8.0 [facility] ID Date Data Source [id number] 07/10/2019 06:09:56 PM [facility] NegativeNo interferon-gamma response to M.tuberculosisantigens was detected. Infection withM. tuberculosis is unlikely. A single negativeresult does not exclude infection with M. TB.In patients at high risk for M. tuberculosisinfection, a 2nd test should be consideredin accordance with [id number] ATS/IDSA/CDC Clinical Practice Guidelinesfor Diagnosis of Tuberculosis in Adults andChildren [Regina WRIGHT et. al. Clin Infec.Rkn1612 64(2):111-115] Name Value Range Interpretation Code Description Data Lily rce(s) Supporting Document(s) C reactive protein [Mass/volume] in Serum or Plasma 1.2 mg/L <3.0 [facility] (NOTE)CRPHS (mg/L) CVD risk <1.0 low 1.0- 3.0 average >3.0 high ID Date Data Source [id number] 07/10/2019 06:09:56 PM [facility] NegativeNo interferon-gamma response to M.tuberculosisantigens was detected. Infection withM. tuberculosis is unlikely. A single negativeresult does not exclude infection with M. TB.In patients at high risk for M. tuberculosisinfection, a 2nd test should be consideredin accordance with [id number] ATS/IDSA/CDC Clinical Practice Guidelinesfor Diagnosis of Tuberculosis in Adults andChildren [Regina WRIGHT et. al. Clin Infec.Xoj8122 64(2):111-115] Name Value Range Interpretation Code Description Data Lily rce(s) Supporting Document(s) Thyroxine (T4) free [Mass/volume] in Serum or Plasma 1.33 ng/dL 0.93- 1.70 [facility] ID Date Data Source [id number] 07/10/2019 06:09:56 PM [facility] NegativeNo interferon-gamma response to M.tuberculosisantigens was detected. Infection withM. tuberculosis is unlikely. A single negativeresult does not exclude infection with M. TB.In patients at high risk for M. tuberculosisinfection, a 2nd test should be consideredin accordance with [id number] ATS/IDSA/CDC Clinical Practice Guidelinesfor Diagnosis of Tuberculosis in Adults andChildren [Ubaldon KYLE et. al. Clin Infec.Scy7605 64(2):111-115] Name Value Range Interpretation Code Description Data Lily rce(s) Supporting Document(s) IgG [Mass/volume] in Serum or Plasma 1157 mg/dL 700-1600 [facility] IgA [Mass/volume] in Serum or Plasma 276 mg/dL 70-400 [facility] IgM [Mass/volume] in Serum or Plasma 301 mg/dL 30-[address] [facility] ID Date Data Source [id number] 07/10/2019 06:09:56 PM [facility] NegativeNo interferon-gamma response to M.tuberculosisantigens was detected. Infection withM. tuberculosis is unlikely. A single negativeresult does not exclude infection with M. TB.In patients at high risk for M. tuberculosisinfection, a 2nd test should be consideredin accordance with [id number] ATS/IDSA/CDC Clinical Practice Guidelinesfor Diagnosis of Tuberculosis in Adults andChildren [Lewpadminiohn KYLE et. al. Clin Infec.Pli0457 64(2):111-115] Name Value Range Interpretation Code Description Data Lily rce(s) Supporting Document(s) Albumin [Mass/volume] in Serum or Plasma by Bromocresol green (BCG) dye binding method 5.2 g/dL 3.5-[facility] Bilirubin.total [Mass/volume] in Serum or Plasma 0.4 mg/dL <1.2 [facility] Calcium [Mass/volume] in Serum or Plasma 9.8 mg/dL 8.6-10.0 [facility] Chloride [Moles/volume] in Serum or Plasma 102 mmol/L 98-107 [facility] Creatinine [Mass/volume] in Serum or Plasma 0.94 mg/dL 0.50-0.[address] [facility] Glucose [Mass/volume] in Serum or Plasma 89 mg/dL 70-140 [facility] Alkaline phosphatase [Enzymatic activity/volume] in Serum or Plasma 54 U/L 35-104 [facility] Potassium [Moles/volume] in Serum or Plasma 3.5 mmol/L 3.4-5.1 [facility] Protein [Mass/volume] in Serum or Plasma 8.5 g/dL 6.4-8.[address] [facility] Sodium [Moles/volume] in Serum or Plasma 141 mmol/L 136-145 [facility] Aspartate aminotransferase [Enzymatic activity/volume] in Serum or Plasma 25 U/L <32 [facility] Urea nitrogen [Mass/volume] in Serum or Plasma 19 mg/dL 6-20 [facility] Osmolality of Serum or Plasma by calculation 294 mosm/kg 275-300 [facility] Creatinine/Urea nitrogen [Mass Ratio] in Serum or Plasma 20 [facility] Bicarbonate [Moles/volume] in Serum 25 mmol/L 22-29 [facility] Alanine aminotransferase [Enzymatic activity/volume] in Seru m or Plasma 9 U/L <33 [facility] Anion gap 3 in Serum or Plasma 14 mmol/L 8-15 [facility] Albumin/Globulin [Mass Ratio] in Serum or Plasma 1.6 [facility] Glomerular filtration rate/1.73 sq M pre dicted among non-blacks [Volume Rate/Area] in Serum or Plasma by Creatinine-based formula (MDRD) 81 mL/min/1.73m2 >60 [facility] Glomerular filtration rate/1.73 sq M pre dicted among blacks [Volume Rate/Area] in Serum or Plasma by Creatinine-based formula (MDRD) >60 [facility] ID Date Data Source [id number] 07/10/2019 06:09:56 PM [facility] NegativeNo interferon-gamma response to M.tuberculosisantigens was detected. Infection withM. tuberculosis is unlikely. A single negativeresult does not exclude infection with M. TB.In patients at high risk for M. tuberculosisinfection, a 2nd test should be consideredin accordance with [id number] ATS/IDSA/CDC Clinical Practice Guidelinesfor Diagnosis of Tuberculosis in Adults andChildren [Regina DM et. al. Clin Infec.Bwb9965 64(2):111-115] Name Value Range Interpretation Code Description Data Lily rce(s) Supporting Document(s) Rheumatoid factor [Units/volume] in Serum or Plasma <14 [facility] ID Date Data Source [id number] 07/10/2019 06:09:56 PM [facility] NegativeNo interferon-gamma response to M.tuberculosisantigens was detected. Infection withM. tuberculosis is unlikely. A single negativeresult does not exclude infection with M. TB.In patients at high risk for M. tuberculosisinfection, a 2nd test should be consideredin accordance with [id number] ATS/IDSA/CDC Clinical Practice Guidelinesfor Diagnosis of Tuberculosis in Adults andChildren [Regina WRIGHT et. al. Clin Infec.Gre7961 64(2):111-115] Name Value Range Interpretation Code Description Data Lily rce(s) Supporting Document(s) Thyrotropin [Units/volume] in Serum or Plasma 0.773 u[IU]/mL 0.270-4. 200 [facility] ID Date Data Source [id number] 07/10/2019 06:09:56 PM [facility] NegativeNo interferon-gamma response to M.tuberculosisantigens was detected. Infection withM. tuberculosis is unlikely. A single negativeresult does not exclude infection with M. TB.In patients at high risk for M. tuberculosisinfection, a 2nd test should be consideredin accordance with [id number] ATS/IDSA/CDC Clinical Practice Guidelinesfor Diagnosis of Tuberculosis in Adults andChildren [Regina WRIGHT et. al. Clin Infec.Apj2663 64(2):111-115] Name Value Range Interpretation Code Description Data Lily rce(s) Supporting Document(s) Urate [Mass/volume] in Serum or Plasma 4.4 mg/dl 2.4-5.7 [facility] ID Date Data Source [id number] 07/11/2019 10:24:16 AM [facility] NegativeNo interferon-gamma response to M.tuberculosisantigens was detected. Infection withM. tuberculosis is unlikely. A single negativeresult does not exclude infection with M. TB.In patients at high risk for M. tuberculosisinfection, a 2nd test should be consideredin accordance with [id number] ATS/IDSA/CDC Clinical Practice Guidelinesfor Diagnosis of Tuberculosis in Adults andChildren [Regina WRIGHT et. al. Clin Infec.Hbz0817 64(2):111-115] Name Value Range Interpretation Code Description Data Lily rce(s) Supporting Document(s) Lupus anticoagulant neutralization plate let [Time] in Platelet poor plasma by Coagulation assay 1.0 sec <8.0 [facility] ID Date Data Source [id number] 07/11/2019 10:24:16 AM [facility] NegativeNo interferon-gamma response to M.tuberculosisantigens was detected. Infection withM. tuberculosis is unlikely. A single negativeresult does not exclude infection with M. TB.In patients at high risk for M. tuberculosisinfection, a 2nd test should be consideredin accordance with [id number] ATS/IDSA/CDC Clinical Practice Guidelinesfor Diagnosis of Tuberculosis in Adults andChildren [Nealohn KYLE et. al. Clin Infec.Tbg9697 64(2):111-115] Name Value Range Interpretation Code Description Data Lily rce(s) Supporting Document(s) dRVVT/dRVVT W excess phospholipid (screen to confirm ratio) 0.87 Ra renny <1.20 [facility] ID Date Data Source [id number] 07/11/2019 12:43:08 PM [facility] NegativeNo interferon-gamma response to M.tuberculosisantigens was detected. Infection withM. tuberculosis is unlikely. A single negativeresult does not exclude infection with M. TB.In patients at high risk for M. tuberculosisinfection, a 2nd test should be consideredin accordance with [id number] ATS/IDSA/CDC Clinical Practice Guidelinesfor Diagnosis of Tuberculosis in Adults andChildren [Regina WRIGHT et. al. Clin Infec.Ulp8730 64(2):111-115] Name Value Range Interpretation Code Description Data Lily rce(s) Supporting Document(s) Cyclic citrullinated peptide IgA+IgG Ab [Units/volume] in Serum or Plasma by Immunoassay 5 units 0-20 [facility]ari Negative ID Date Data Source [id number] 07/11/2019 01:19:20 PM [facility] NegativeNo interferon-gamma response to M.tuberculosisantigens was detected. Infection withM. tuberculosis is unlikely. A single negativeresult does not exclude infection with M. TB.In patients at high risk for M. tuberculosisinfection, a 2nd test should be consideredin accordance with [id number] ATS/IDSA/CDC Clinical Practice Guidelinesfor Diagnosis of Tuberculosis in Adults andChildren [Regina WRIGHT et. al. Clin Infec.Rvj6215 64(2):111-115] Name Value Range Interpretation Code Description Data Lily rce(s) Supporting Document(s) Sjogrens syndrome-A extractable nuclear Ab [Units/volume] in Serum by Immunofluorescence 9 [AU]/mL [address] [place] [address] Sjogrens syndrome-B extractable nuclear Ab [Units/volume] in Serum by Immunofluorescence 10 [AU]/mL [address] [place] [address] Sol extractable nuclear Ab [Units/volume] in Serum b y Immunofluorescence 15 [AU]/mL [address] [place] [address] Ribonucleoprotein extractable nuclear Ab [Units/volume] in Serum by Immunofluorescence 32 U/ML [address] [place] [address] SCL-70 extractable nuclear Ab [Units/volume] in Serum 16 [AU]/mL [address] [place] [address] Mary-1 extractable nuclear Ab [Units/volume] in Serum by Immunofluorescence 5 [AU]/mL [address] [place] [address] DNA double strand Ab [Units/volume] in Serum by Immunofluore scence 0 [IU]/mL [address] [place] [address] Centromere Ab [Units/volume] in Serum 5 [AU]/mL [address] [place] [address] Histone IgG Ab [Units/volume] in Serum 18 [AU]/mL [address] [place] [address] ID Date Data Source [id number] 07/11/2019 02:22:47 PM [facility] NegativeNo interferon-gamma response to M.tuberculosisantigens was detected. Infection withM. tuberculosis is unlikely. A single negativeresult does not exclude infection with M. TB.In patients at high risk for M. tuberculosisinfection, a 2nd test should be consideredin accordance with [id number] ATS/IDSA/CDC Clinical Practice Guidelinesfor Diagnosis of Tuberculosis in Adults andChildren [Regina WRIGHT et. al. Clin Infec.Gbs8820 64(2):111-115] Name Value Range Interpretation Code Description Data [facility] rce(s) Supporting Document(s) Nuclear Ab Pattern Homogenous [Titer] in Serum <80 [facility] Nuclear Ab pattern.speckled [Titer] in Serum 160 1/dil <[address] [facility] Nuclear Ab pattern.rim [Titer] in Serum <80 [facility] Nuclear Ab pattern.nucleolar [Titer] in Serum <80 [facility] ID Date Data Source [id number] 07/12/2019 09:48:02 AM [facility] NegativeNo interferon-gamma response to M.tuberculosisantigens was detected. Infection withM. tuberculosis is unlikely. A single negativeresult does not exclude infection with M. TB.In patients at high risk for M. tuberculosisinfection, a 2nd test should be consideredin accordance with [id number] ATS/IDSA/CDC Clinical Practice Guidelinesfor Diagnosis of Tuberculosis in Adults andChildren [Regina WRIGHT et. al. Clin Infec.Bfc0010 64(2):111-115] Name Value Range Interpretation Code Description Data Lily rce(s) Supporting Document(s) Lupus anticoagulant neutralization plate let [Time] in Platelet poor plasma by Coagulation assay 0.0 sec <1.0 [facility] ID Date Data Source [id number] 07/12/2019 11:53:00 AM [facility] NegativeNo interferon-gamma response to M.tuberculosisantigens was detected. Infection withM. tuberculosis is unlikely. A single negativeresult does not exclude infection with M. TB.In patients at high risk for M. tuberculosisinfection, a 2nd test should be consideredin accordance with [id number] ATS/IDSA/CDC Clinical Practice Guidelinesfor Diagnosis of Tuberculosis in Adults andChildren [Regina WRIGHT et. al. Clin Infec.Csl4202 64(2):111-115] Name Value Range Interpretation Code Description Data Lily rce(s) Supporting Document(s) HLA-B27 [Presence] Negative [facility] ID Date Data Source [id number] 07/12/2019 11:55:53 AM [facility] NegativeNo interferon-gamma response to M.tuberculosisantigens was detected. Infection withM. tuberculosis is unlikely. A single negativeresult does not exclude infection with M. TB.In patients at high risk for M. tuberculosisinfection, a 2nd test should be consideredin accordance with [id number] ATS/IDSA/CDC Clinical Practice Guidelinesfor Diagnosis of Tuberculosis in Adults andChildren [Regina WRIGHT et. al. Clin Infec.Jlc5226 64(2):111-115] Name Value Range Interpretation Code Description Data Lily rce(s) Supporting Document(s) Mycobacterium tuberculosis stimulated gamma interferon [Units/volume] in Blood 0.00 [IU]/mL [facility] 0.00 Mitogen stimulated gamma interferon [Units/volume] in Blood [facility] Gamma interferon background [Units/volume] in Blood by Immun oassay 0.03 [IU]/mL [facility] ID Date Data Source [id number] 07/12/2019 10:05:51 PM [facility] NegativeNo interferon-gamma response to M.tuberculosisantigens was detected. Infection withM. tuberculosis is unlikely. A single negativeresult does not exclude infection with M. TB.In patients at high risk for M. tuberculosisinfection, a 2nd test should be consideredin accordance with [id number] ATS/IDSA/CDC Clinical Practice Guidelinesfor Diagnosis of Tuberculosis in Adults andChildren [Lewinsohn KYLE et. al. Clin Infec.Uzp2785 64(2):111-115] Name Value Range Interpretation Code Description Data Lily rce(s) Supporting Document(s) Cardiolipin IgA Ab [Units/volume] in Serum by Immunoassay 0-11 [facility] (NOTE) Negative: <12 Indeterminate: 12 - 20 Low-Med Positive: >20 - 80 High Positive: >80Performed At: [facility] [address] [id number] Mathias MD Ph:[id number] ID Date Data Source [id number] 07/15/2019 08:05:45 PM [facility] NegativeNo interferon-gamma response to M.tuberculosisantigens was detected. Infection withM. tuberculosis is unlikely. A single negativeresult does not exclude infection with M. TB.In patients at high risk for M. tuberculosisinfection, a 2nd test should be consideredin accordance with [id number] ATS/IDSA/CDC Clinical Practice Guidelinesfor Diagnosis of Tuberculosis in Adults andChildren [Lewinsohn KYLE et. al. Clin Infec.Ohb8301 64(2):111-115] Name Value Range Interpretation Code Description Data Lily rce(s) Supporting Document(s) Beta 2 glycoprotein 1 IgA Ab [Units/volume] in Serum 0- [facility] (NOTE)The reference interval reflects a 3SD or 99th percentile interval,which is thought to represent a potentially clinically significantresult in accordance with the International Consensus Statement onthe classification criteria for definitive antiphospholipidsyndrome (APS). J Thromb Haem 2006;4:295- 306.Performed At: [facility] [address] [id number] Julian MD Ph:[id number] ID Date Data Source [id number] 07/10/2019 06:16:04 PM [facility] Name Value Range Interpretation Code Description Data Lily rce(s) Supporting Document(s) Hepatitis A virus IgM Ab [Presence] in Serum or Plasma by Im munoassay Non Reactive [facility] Hepatitis B virus core IgM Ab [Presence] in Serum or Plasma by Immunoassay Non Reactive [facility] IgM antibodies to HBc were not detected, does not exclude the possibility of exposure to HBV. Hepatitis C virus Ab [Presence] in Serum or Plasma by Immuno assay Non Reactive [facility] No serological evidence of active infect ion. If recent exposure is suspected, test for HCV RNA. Hepatitis B virus surface Ag [Presence] in Serum or Plasma b y Immunoassay Non Reactive [facility] No active or previous infection. Suscept ible to infection. ID Date Data Source [id number] 07/11/2019 11:00:26 AM [facility] Value Range Interpretation Code Description Data Lily rce(s) Supporting Document(s) Cardiolipin IgM Ab [Interpretation] in Serum 2.6 U/mL <20.0 [facility] Negative results do not rule out Antipho spholipid syndrome. Additional APL testing should be considered. Cardiolipin IgG Ab [Interpretation] in Serum <20.0 [facility] Negative results do not rule out Antipho spholipid syndrome. Additional APL testing should be considered. ID Date Data Source [id number] 07/11/2019 11:00:26 AM [facility] Name Value Range Interpretation Code Description Data Lily rce(s) Supporting Document(s) Beta 2 glycoprotein 1 IgM Ab [Units/volume] in Serum <20.0 [facility] Negative results do not rule out Antipho spholipid syndrome. Other APL testing should be considered. Beta 2 glycoprotein 1 IgG Ab [Units/volume] in Serum <20.0 [facility] Negative results do not rule out Antipho spholipid syndrome. Other APL testing should be considered. ID Date Data Source [id number] 07/12/2019 11:11:04 AM [facility] Name Value Range Interpretation Code Description Data Lily rce(s) Supporting Document(s) Thyroperoxidase Ab [Units/volume] in Serum or Plasma 0.7 IU/mL <9.0 [facility] Procedure Social History Code Duration Value Status Description Data Source(s ) Smoking 07/07/2020 12:00:00 AM EST Never Smoker completed Never S moker eCW1 ([facility]) Smoking 07/07/2020 12:00:00 AM EST Never Smoker completed Never S moker eCW1 ([facility]) Smoking 12/25/2019 12:00:00 AM EDT Unknown if ever smoked comp leted Unknown if ever smoked [facility] ([facility]) Alcohol intake 12/04/2019 12:00:00 AM EDT Current drinker of al cohol (finding) completed Current drinker of alcohol (finding) [facility] Tobacco use and exposure 12/04/2019 12:00:00 AM EDT Never used co mpleted Never used [facility] Smoking 12/04/2019 12:00:00 AM EDT Former smoker completed Former smoker [facility] Smoking 12/04/2019 12:00:00 AM EDT Former smoker completed Former smoker [facility] Smoking 10/25/2019 12:00:00 AM EDT Unknown if ever smoked comp leted Unknown if ever smoked [facility] ([facility]) Smoking 10/11/2019 12:00:00 AM EDT Unknown if ever smoked comp leted Unknown if ever smoked [facility] ([facility]) Smoking 09/27/2019 12:00:00 AM EDT Unknown if ever smoked comp leted Unknown if ever smoked [facility] ([facility]) Smoking 09/04/2019 12:00:00 AM EDT Unknown if ever smoked comp leted Unknown if ever smoked [facility] ([facility]) Smoking 08/19/2019 12:00:00 AM EST Unknown if ever smoked comp leted Unknown if ever smoked [facility] ([facility]) Alcohol intake 07/10/2019 12:00:00 AM EST Current drinker of al cohol (finding) completed Current drinker of alcohol (finding) [facility] Smoking 07/10/2019 12:00:00 AM EST Former smoker completed Former smoker [facility] Vital Signs ID Date Data Source [id number] Name Value Range Interpretation Code Description Data Source(s) Diastolic blood pressure 70 mm[Hg] 70 mm[Hg] eCW1 ([facility]) Systolic blood pressure 122 mm[Hg] 122 mm[Hg] e CW1 ([facility]) Body mass index (BMI) [Ratio] 22.98 kg/m2 22.98 kg/m2 eCW1 ([facility]) Body height 63.5 [in_i] 63.5 [in_i] eCW1 ([facility]) Body weight 131.8 [lb_av] 131.8 [lb_av] eCW1 ([facility]) Body mass index (BMI) [Ratio] 21.7 kg/m2 21.7 k g/m2 MEDENT ([facility]) Body weight 128.50 [lb_av] 128.50 [lb_av] MEDEN T ([facility]) Body height 64.5 [in_i] 64.5 [in_i] MEDENT ([facility]) 5'4.50" Body weight 2020 [oz_av] 2020 [oz_av] ELENO ([facility]) Systolic blood pressure 111 mm[Hg] 111 mm[Hg] A THENA ([facility]) Body height 67 [in_i] 67 [in_i] ELENO ([facility]) Diastolic blood pressure 75 mm[Hg] 75 mm[Hg] ELENO ([facility]) Body mass index (BMI) [Ratio] 20.6 kg/m2 20.6 k g/m2 MEDENT ([facility]) Body height 64 [in_i] 64 [in_i] MEDENT ([facility]) 5'4" Body weight 120.00 [lb_av] 120.00 [lb_av] MEDEN T ([facility], [facility]) Body temperature 100.0 [degF] 100.0 [degF] MEDE NT ([facility], [facility]) Oxygen saturation in Arterial blood by Pulse oximetry 99 % 99 % MEDENT ([facility], [facility]) Respiratory rate 16 /min 16 /min MED[facility] ( [facility], [facility]) Heart rate 80 /min 80 /min MEDENT ([facility], [facility]) Diastolic blood pressure 82 mm[Hg] 82 mm[Hg] EDOUARD ([facility], [facility]) Systolic blood pressure 125 mm[Hg] 125 mm[Hg] Margarita MARKS ([facility], [facility]) ID Date Data Source [id number] 07/15/2019 08:05:52 PM [facility] Name Value Range Interpretation Code Description Data Source(s) WEIGHT RECORDED 122 lb 122 lb [facility] Body height Measured 64 in 64 in [facility] Patient Treatment Plan of Care Planned Activity Planned Date Details Description Data Source (s) 1 ML secukinumab 150 MG/ML Auto-Injector 07/01/2020 12:00:[address] [facility] 1 ML secukinumab 150 MG/ML Auto-Injector 06/03/2020 12:00:[address] [facility] buspirone hydrochloride 10 MG Oral Tablet 04/30/2020 12:00:00 AM [facility] gabapentin 100 MG Oral Capsule 04/30/2020 12:00:[address] [facility] Hydroxychloroquine Sulfate 200 MG Oral Tablet 04/30/2020 12:00:[address] [facility] Fluticasone Propionate 50 MCG/ACT Nasal Suspension ([place] ONASE) 02/11/2020 12:00:00 AM [facility] Hydroxychloroquine Sulfate 200 MG Oral Tablet 12/04/2019 12:00:00 A M [facility] Ixekizumab 80 MG/ML Subcutaneous Solution Auto-injecto r 07/11/2019 12:00:00 AM [facility] Ixekizumab 80 MG/ML Subcutaneous Solution Auto-injecto r (TALRICCO) 07/10/2019 12:00:00 AM [facility] Escitalopram 10 MG Oral Tablet 06/22/2019 12:00:[address] [facility] montelukast 10 MG Oral Tablet 06/22/2019 12:00:[address] [facility]
[2020-08-19 08:18] LABS: HEMATOCRIT 41.7 % (36.0-47.0); HEMOGLOBIN 13.4 g/dl (12.0-15.5); MEAN CORPUSCULAR HEMOGLOBIN 30.7 pg (27.0-33.0); MEAN CORPUSCULAR HGB CONC 32.1 g/dl (32.0-36.5); MEAN CORPUSCULAR VOLUME 95.4 fl (80.0-96.0); PLATELET COUNT, AUTOMATED 302 10^3/uL (150-450); RED BLOOD COUNT 4.37 10^6/uL (4.00-5.40); WHITE BLOOD COUNT 5.8 10^3/uL (4.0-10.0)
[2020-08-19] MEDS ORDERED: propofoL 200 MG/20 ML VIAL As Ordered ONE (08:26)
[2020-08-19] MEDS ORDERED: fentaNYL 250 MCG/5 ML INJECTION (J3010) As Ordered ONE (08:26)
[2020-08-19] MEDS ORDERED: ROCURONIUM BROMIDE 50 MG/5 ML VIAL As Ordered ONE (08:26)
[2020-08-19] MEDS ORDERED: LIDOCAINE 2% 100MG/5ML SDV (FOR ANES.) As Ordered ONE (08:26)
[2020-08-19] MEDS ORDERED: MIDAZOLAM INJ 2MG/2ML VIAL (J2250 PER 1MG) As Ordered ONE (08:27)
[2020-08-19 08:57] LABS: HCG, SERUM QUALITATIVE NEGATIVE (NEGATIVE)
[2020-08-19] MEDS ORDERED: SILVER NITRATE APPLICATOR As Ordered ONE (09:51)
[2020-08-19] MEDS ORDERED: BUPIVACAINE HCL 0.25% 10ML VIAL As Ordered ONE (09:51)
[2020-08-19] MEDS ORDERED: LIDOCAINE 1% SDV 30ML VIAL As Ordered ONE (10:10)
[2020-08-19] MEDS ORDERED: ACETAMINOPHEN 1000MG 100ML IV BTL (OFIRMEV) (J0131 PER 10MG) As Ordered ONE (10:21)
[2020-08-19] MEDS ORDERED: dexameTHASONE 4 MG/ML 1ML VIAL (J1100 PER 1MG) As Ordered ONE (10:21)
[2020-08-19] MEDS ORDERED: KETOROLAC 60MG 2ML VIAL As Ordered ONE (10:21)
[2020-08-19] MEDS ORDERED: ONDANSETRON 4MG/2ML VIAL As Ordered ONE ×2 (10:21→11:28)
[2020-08-19] MEDS ORDERED: METOCLOPRAMIDE INJ 10MG/2ML VIAL (J2765 PER 1) As Ordered ONE (10:23)
[2020-08-19] MEDS ORDERED: SUGAMMADEX SODIUM 500 MG/5 ML VIAL (BRIDION) As Ordered ONE (10:35)
--- NOTE | 2020-08-19 11:13 | ROOPDOC ---
[facility] Report Of Operation Report of Operation Date of procedure: 08/19/2020 Preoperative diagnosis: Satisfied parity. Postoperative diagnosis: Same Procedure: Laparoscopic bilateral salpingectomy Anesthesia: Gen. endotracheal Estimated blood loss 10 mL IV fluids replaced 1100 mL lactated Ringer's Drains: In and out catheter 50 mL of urine Complications: None Preoperative antibiotics: None indicated Specimens: Bilateral fallopian tubes Intraoperative findings: Normal size, shape, contour of the uterus. Normal adnexa/ovaries bilaterally. Minimal pelvic adhesions Procedure: The patient was counseled and consented on the risks, benefits, indications, and alternatives of the procedure. Informed consent was obtained. She was taken to the operating room with an IV running. She was placed on the operating table in the dorsal supine position. Gen. anesthesia was administered and the airway was secured without any difficulty. A timeout was performed per protocol. She was prepared and draped in the normal sterile fashion. Attention was turned to the pelvis. The bladder was drained with in and out sterile catheter. A speculum was placed into the vagina with good visualization of the cervix. A single- tooth tenaculum was placed on the anterior lip of the cervix and downward traction was applied. The cervix was sequentially dilated with Shine dilators up to a #16. A ZUMI uterine manipulator was placed without any difficulty. The single-tooth tenaculum was removed. The tenaculum sites were noted to be hemostatic. A sterile glove switch was performed. Attention was turned to the abdomen. A 5mm umbilical incision was made with the 11 blade. Through this incision, a Veress needle was placed into the intraperitoneal cavity. Intraperitoneal placement was confirmed with ease of flow of normal saline, a positive drop test and no return on aspiration. The opening pressure was 2 mmHg. The abdomen was insufflated with 2 L of CO2. The Veress needle was removed. A 5 mm laparoscopic trocar was placed under direct visualization without any difficulty, and intraperitoneal placement was confirmed. No incidental bleeding or injury was evident. The patient was placed in steep Trendelenburg. 2 additional laparoscopic port sites were placed through 5 mm incisions in the lower left quadrant. Each trocar/cannula was placed under direct visualization without any difficulty, incidental bleeding or injury. Attention was turned to the right fallopian tube. The right fallopian tube was followed out to the fimbriated end, grasped and elevated. The underlying mesosalpinx was sequentially clamped, coagulated and transected, until the level of the cornu was reached. At this level, the fallopian tube was clamped, coagulated and transected, thus amputating the fallopian tube. The fallopian tube was brought through the cannula without any difficulty and sent to pathology for permanent section. Attention was turned to the left fallopian tube. The left fallopian tube was followed out to the fimbriated end, grasped and elevated. The underlying mesosalpinx was sequentially clamped, coagulated and transected, until the level of the cornu was reached. At this level the fallopian tube was clamped, coagulated and transected, thus amputating the fallopian tube. The fallopian tube was brought to the cannula without any difficulty and sent to pathology for permanent section. Both right and left surgical sites were noted to be completely hemostatic. The gas was released from the abdomen. The patient was taken out of Trendelenburg position. The cannulas were removed. The skin incisions were closed with 4-0 Monocryl in subcuticular fashion and reinforced with Dermabond. The uterine manipulator was removed, the vagina was noted to be clear of any sponge or instrument. Sponge, needle and instrument counts were correct per protocol. The patient tolerated the entire procedure very well. She was transferred to the PACU in good and stable condition. DO DIMITRIOS Mayorga JONATHAN R. DO Aug 19, 2020 11:13
[2020-08-19] MEDS ORDERED: IBUP80TA PO (11:14)
[2020-08-19] MEDS ORDERED: COLA100C5 PO (11:15)
[2020-08-19] MEDS ORDERED: oxyCODONE 5MG TAB As Ordered ONE ×2 (11:27→11:43)
[2020-08-19] MEDS ORDERED: fentaNYL 100 MCG/2 ML INJECTION (J3010) As Ordered ONE (11:28)
[2020-08-19] MEDS: fentaNYL 100 MCG/2 ML INJECTION (J3010) IV PRN ×4 (11:33→11:55)
[2020-08-19] MEDS: oxyCODONE 5MG TAB PO PRN ×2 (11:33→12:00)
[2020-08-19] MEDS ORDERED: ONDANSETRON 4MG/2ML VIAL IV PRN (12:00)
[2020-08-19] MEDS ORDERED: LR 1,000 ML IV SCH ×2 (12:00)
[2020-08-19 12:50] VITALS: BP 113/57
[2020-08-19] MEDS ORDERED: OXYC1TAB23 PO (15:42)
== END 2020-08-19 13:00 | disposition home or self-care (01) ==
LOC: M SDC 07:32
PROVIDERS: ATTEND Obstetrics & Gynecology
DX: Z30.2 Encounter for sterilization (principal); J45.909 Unspecified asthma, uncomplicated; M32.9 Systemic lupus erythematosus, unspecified; N80.9 Endometriosis, unspecified
CPT/HCPCS: 36415; 58661; 84703; 85027; 86850; 86900; 86901; 88302; J0131; J1100; J1885; J2250; J2405; J2765; J3010

== ENCOUNTER → 2020-10-20 | Outpatient (REF) | payer OTHER ==
[~2020-10-20] MED LIST changes: +COLA100C5 PO; -LR 1,000 ML IV ONE; +OXYC1TAB23 PO
[2020-10-20 19:39] LABS: C REACTIVE PROTEIN QUANTITATIV < 0.30 MG/DL (0.00-0.30); VITAMIN B12 LEVEL 537 PG/ML (247-911)
== END ==
LOC: M LAB REF 15:45
PROVIDERS: ATTEND Pediatrics
DX: M32.9 Systemic lupus erythematosus, unspecified (principal)